=== PATIENT | female | born 1935 | race Caucasian/White ===

== ENCOUNTER → 2023-03-07 13:54 | Outpatient (REF) | payer MEDICARE, OTHER, SELFPAY | LOC: WOUND 13:54 | PROVIDERS: ATTENDING PHYSICIAN Surgery; REFERRING PHYSICIAN Nurse Practitioner | DX: L97.822 Non-pressure chronic ulcer of other part of left lower leg with fat layer exposed (principal); S81.802S Unspecified open wound, left lower leg, sequela; Z79.52 Long term (current) use of systemic steroids; M35.3 Polymyalgia rheumatica; I10 Essential (primary) hypertension; R79.82 Elevated C-reactive protein (CRP); X58.XXXS Exposure to other specified factors, sequela | CPT/HCPCS: 11042; 11045 ==

== ENCOUNTER → 2023-03-14 14:49 | Outpatient (REF) | payer MEDICARE, OTHER, SELFPAY | LOC: WOUND 14:49 | PROVIDERS: ATTENDING PHYSICIAN Surgery; REFERRING PHYSICIAN Nurse Practitioner | DX: L97.822 Non-pressure chronic ulcer of other part of left lower leg with fat layer exposed (principal); S81.802S Unspecified open wound, left lower leg, sequela; X58.XXXS Exposure to other specified factors, sequela | CPT/HCPCS: 11042; 11045 ==

== ENCOUNTER → 2023-03-21 10:54 | Outpatient (REF) | payer MEDICARE, OTHER, SELFPAY | LOC: WOUND 10:54 | PROVIDERS: ATTENDING PHYSICIAN Surgery; REFERRING PHYSICIAN Nurse Practitioner | DX: L97.822 Non-pressure chronic ulcer of other part of left lower leg with fat layer exposed (principal); S81.811A Laceration without foreign body, right lower leg, initial encounter; Z79.52 Long term (current) use of systemic steroids; M35.3 Polymyalgia rheumatica; I10 Essential (primary) hypertension; R79.82 Elevated C-reactive protein (CRP); X58.XXXA Exposure to other specified factors, initial encounter | CPT/HCPCS: 11042; 11045; 99213 ==

== ENCOUNTER → 2023-04-04 14:17 | Outpatient (REF) | payer MEDICARE, OTHER, SELFPAY | LOC: WOUND 14:17 | PROVIDERS: ATTENDING PHYSICIAN Surgery; FAMILY PHYSICIAN Nurse Practitioner | DX: L97.822 Non-pressure chronic ulcer of other part of left lower leg with fat layer exposed (principal); S81.802A Unspecified open wound, left lower leg, initial encounter; S81.811A Laceration without foreign body, right lower leg, initial encounter; Z79.52 Long term (current) use of systemic steroids; M35.3 Polymyalgia rheumatica; I10 Essential (primary) hypertension; R79.82 Elevated C-reactive protein (CRP); X58.XXXA Exposure to other specified factors, initial encounter | CPT/HCPCS: 11042; 11045 ==

== ENCOUNTER → 2023-04-11 13:54 | Outpatient (REF) | payer MEDICARE, OTHER, SELFPAY | LOC: WOUND 13:54 | PROVIDERS: ATTENDING PHYSICIAN Surgery; FAMILY PHYSICIAN Nurse Practitioner | DX: S81.802A Unspecified open wound, left lower leg, initial encounter (principal); L97.822 Non-pressure chronic ulcer of other part of left lower leg with fat layer exposed; S81.811A Laceration without foreign body, right lower leg, initial encounter; Z79.52 Long term (current) use of systemic steroids; M35.3 Polymyalgia rheumatica; I10 Essential (primary) hypertension; R79.82 Elevated C-reactive protein (CRP); X58.XXXA Exposure to other specified factors, initial encounter | CPT/HCPCS: 11042; 11045 ==

== ENCOUNTER → 2023-04-18 14:23 | Outpatient (REF) | payer MEDICARE, OTHER, SELFPAY | LOC: WOUND 14:23 | PROVIDERS: ATTENDING PHYSICIAN Surgery; FAMILY PHYSICIAN Nurse Practitioner | DX: L97.822 Non-pressure chronic ulcer of other part of left lower leg with fat layer exposed (principal); S81.811A Laceration without foreign body, right lower leg, initial encounter; S81.802S Unspecified open wound, left lower leg, sequela; Z79.52 Long term (current) use of systemic steroids; M35.3 Polymyalgia rheumatica; I10 Essential (primary) hypertension; R79.82 Elevated C-reactive protein (CRP); V48.4XXA Person boarding or alighting a car injured in noncollision transport accident, initial encounter | CPT/HCPCS: 11042; 11045 ==

== ENCOUNTER → 2023-05-04 13:22 | Outpatient (REF) | payer MEDICARE, OTHER, SELFPAY | LOC: WOUND 13:22 | PROVIDERS: ATTENDING PHYSICIAN Surgery; FAMILY PHYSICIAN Nurse Practitioner | DX: L97.822 Non-pressure chronic ulcer of other part of left lower leg with fat layer exposed (principal); S81.802A Unspecified open wound, left lower leg, initial encounter; S81.811A Laceration without foreign body, right lower leg, initial encounter; M35.3 Polymyalgia rheumatica; I10 Essential (primary) hypertension; R79.82 Elevated C-reactive protein (CRP); Z79.52 Long term (current) use of systemic steroids; X58.XXXA Exposure to other specified factors, initial encounter | CPT/HCPCS: 11042 ==

== ENCOUNTER → 2023-05-11 13:55 | Outpatient (REF) | payer MEDICARE, OTHER, SELFPAY | LOC: WOUND 13:55 | PROVIDERS: ATTENDING PHYSICIAN Surgery; FAMILY PHYSICIAN Nurse Practitioner | DX: S81.802A Unspecified open wound, left lower leg, initial encounter (principal); L97.822 Non-pressure chronic ulcer of other part of left lower leg with fat layer exposed; S81.811A Laceration without foreign body, right lower leg, initial encounter; M35.3 Polymyalgia rheumatica; I10 Essential (primary) hypertension; R79.82 Elevated C-reactive protein (CRP); Z79.52 Long term (current) use of systemic steroids; V48.4XXA Person boarding or alighting a car injured in noncollision transport accident, initial encounter | CPT/HCPCS: 11042 ==

== ENCOUNTER → 2023-05-16 14:43 | Outpatient (REF) | payer MEDICARE, OTHER, SELFPAY | LOC: HWRAD 14:43 | PROVIDERS: ATTENDING PHYSICIAN Physician Assistant Medical; FAMILY PHYSICIAN Nurse Practitioner | DX: R05.1 Acute cough (principal) | CPT/HCPCS: 71046 ==

== ENCOUNTER 2023-05-18 13:57 | Inpatient (IN) | payer MEDICARE, OTHER, SELFPAY ==
[2023-05-18] VITALS (7 sets, daily range): BP systolic 110–159; BP diastolic 69–88; BMI 24.3; BMI 24.0
[2023-05-18 10:42] LABS: % Basophils 0.3 % (0-2); % Eosinophils 3.1 % (0-6); % Immature Granulocytes 0.5 % (0-0.5); % Monocytes 3.2 % (1.7-9.3); % Neutrophils 89.9 % (42.2-75.2); Absolute Eosinophils 0.4 10^3/uL (0-0.7); Absolute Immature Granulocytes 0.1 10^3/uL (0-0.05); Absolute Lymphocytes 0.3 10^3/uL (1.2-3.4); Absolute Monocytes 0.4 10^3/uL (0.1-0.6); Absolute Neutrophils 10.1 10^3/uL (1.4-6.5); Hematocrit 35.8 % (37.0-47.0); Hemoglobin 11.8 g/dL (12.0-16.0); Mean Platelet Volume 8.7 fL (7.4-10.4); Nucleated Red Blood Cells % 0 %; Platelet Count 402 10^3/uL (130-400); Red Blood Cell Count 4.21 10^6/uL (4.20-5.40); Red Cell Dist. Width 13.7 % (11.5-14.5); White Blood Cell Count 11.2 10^3/uL (4.8-10.8)
[2023-05-18 10:54] LABS: ALT (SGPT) 16 U/L (0-35); AST (SGOT) 25 U/L (14-36); Albumin 3.3 g/dl (3.5-5.0); Alkaline Phosphatase 74 U/L (38-126); Blood Urea Nitrogen 9 mg/dl (7-17); Calcium 8.6 mg/dl (8.4-10.2); Carbon Dioxide 26 mmol/L (22-30); Chloride 90 mmol/L (98-107); Glucose 116 mg/dl (70-99); Potassium 3.6 mmol/L (3.5-5.1); Sodium 124 mmol/L (135-145); Total Bilirubin 0.4 mg/dl (0.2-1.3); Total Protein 5.9 g/dl (6.3-8.2); eGFR > 60.00
--- NOTE | 2023-05-18 12:50 | ED.GENMED ---
History of Present Illness
General
Chief Complaint: Abnormal Lab Value
Source: patient and family
Exam Limitations: none
Time Seen by Provider: 05/18/23 11:40
Nursing documentation reviewed up to this point in time: agreed with
Travel History
Have you had any contact with someone who has COVID-19?: No
Do you have any symptoms of coronavirus? Fever > 100 degrees, chills, cough, shortness of breath, sore throat, loss of taste or smell, muscle aches, or headache?: No
History of Present Illness
History of Present Illness:
88-year-old female past medical history of hypertension hyperlipidemia, hypothyroidism presenting to the emergency department today with concerns of low sodium she had performed as an outpatient. She claims that she had an upper respiratory
syndrome a few weeks ago which is resolved but she has had ongoing generalized weakness fatigue lightheadedness. Went to the primary care doctor as an outpatient sodium 123. She says that she has been eating less and drinking more fluids. Denies
chest pain shortness of breath
Past History
Past History
ED Past Medical History: HTN and Hypothyroidism
ED Past Surgical History: None
Social History
Tobacco: Non-smoker
Alcohol: None
Drug: None
Review of Systems
Review of Systems
Allergies reviewed?: Yes
All Other Systems: ROS reviewed and negative except as documented in HPI and ROS
Phy Exam
Physical Exam
Physical Exam:
GENERAL: Alert , in no apparent distress
EYE: pupils equal and reactive
NECK: Supple, no significant adenopathy.
ENT: o/p clr, mmm.
CARDIAC: Regular rate and rhythm .
LUNGS: Clear breath sounds bilaterally, no acute respiratory distress, no wheezes/rales/rhonchi
ABDOMEN: Soft, without focal tenderness, no r/g, no cvat
NEUROLOGICAL: Alert and oriented, no focal neuro deficits
SKIN: Warm and dry, skin intact.
MUSCULOSKELETAL: No edema, well perfused.
PSYCH: Normal and appropriate interaction.
Course
Orders/Labs/Results
Orders:
Orders
05/18/23 10:17
Electrocardiogram (*1) Urgent
Reason for Study: Other
Other Reason for Exam: low sodium
05/18/23 10:18
EKG- Treatment ONCE
Urinalysis Reflex To Culture Urgent
Date Specimen was Collected: 05/18/23
Time Specimen was Collected: 10:18
05/18/23 10:23
Complete Blood Count/With Diff Urgent
Comprehensive Metabolic Panel Urgent
05/18/23 12:02
Chest [CR Chest - 2 Views ] Urgent
Comment:
Reason For Exam: cough
Abnormal Lab Results
05/18/23
10:23
WBC 11.2 H 10^3/uL
(4.8-10.8)
Hgb 11.8 L g/dL
(12.0-16.0)
Hct 35.8 L %
(37.0-47.0)
Plt Count 402 H 10^3/uL
(130-400)
Abs Immat Gran (auto) 0.1 H 10^3/uL
(0-0.05)
Absolute Neuts (auto) 10.1 H 10^3/uL
(1.4-6.5)
Absolute Lymphs (auto) 0.3 L 10^3/uL
(1.2-3.4)
Neutrophils % 89.9 H %
(42.2-75.2)
Lymphocytes % 3.0 L %
(20.5-51.1)
Sodium 124 L mmol/L
(135-145)
Chloride 90 L mmol/L
(98-107)
Glucose 116 H mg/dl
(70-99)
Total Protein 5.9 L g/dl
(6.3-8.2)
Albumin 3.3 L g/dl
(3.5-5.0)
05/18/23 10:23
05/18/23 10:23
Vital Signs
Initial and Last Documented VS:
Initial Vital Signs
Temp Pulse Resp BP Pulse Ox
98.7 F 87 18 110/69 98
05/18/23 10:14 05/18/23 10:14 05/18/23 10:14 05/18/23 10:14 05/18/23 10:14
Last Documented Vital Signs
Temp Pulse Resp BP Pulse Ox
98.7 F 83 23 157/78 96
05/18/23 10:14 05/18/23 12:00 05/18/23 12:00 05/18/23 12:00 05/18/23 12:00
MDM/Problems Addressed
MDM/Problems Addressed:
88-year-old female presenting to the emergency department today with concerns of low sodium. Here vital signs are normal patient no obvious distress does have generalized weakness fatigue. Plan to admit for further treatment and monitoring.
*Critical Care Note
Total Time (30-74mins, 75-104mins- exclusive of procedures): Not Applicable
ED Attending Note
-
Portions of this chart may have been created with voice recognition software.� Occasional wrong word or��sound alike� substitutions may have occurred due to the inherent limitations of voice recognition software.
Discharge Plan
Departure
Patient Disposition: Admit
Date of Disposition: 05/18/23
Time of Disposition: 12:51
Admit to: Med/Surg
Admit to doctor: Adelita
Presentation/result/management discussed w/ accepting MD/DO: Hospitalist
Patient with high blood pressure during this ER visit?: No
Condition: Good
Covid-19: Not Applicable
Discharge Problem:
Hyponatremia
Prescriptions:
No Action
latanoprost 0.005 % Drops
1 drp BOTH EYES HS
atorvastatin 10 mg Tablet
10 mg PO QPM
amlodipine 5 mg Tablet
5 mg PO QPM
acetaminophen [Tylenol Extra Strength] 500 mg Tablet
1,000 mg PO Q6H PRN (Reason: mild pain)
levothyroxine 100 mcg Tablet
100 mcg PO DAILY@0700
dorzolamide-timolol 22.3-6.8 mg/mL Drops
1 drp BOTH EYES BID
lisinopril 40 mg Tablet
40 mg PO DAILY
Knee Salt
1 applic topical NOON
Patient Comments:
05/18/2023, for wound care.
Mucinex DM
1 tab PO DAILYPRN PRN (Reason: congestion)
Prebiotic + Probiotic
2 gummy PO DAILY
Referrals:
Ana María Hernandez CRNP [Family Provider] -
Interventions
Interventions:
*Risk Screen - Suicide Last Done: 05/18/23 10:16
*General Assessment Last Done: 05/18/23 10:16
*Neglect/Abuse Screening Last Done: 05/18/23 10:16
Discharge Date and Time
Print Language: BELARUSIAN
[2023-05-18 13:02] LABS: Urine Albumin Negative (Neg - Trace); Urine Bilirubin Negative (Negative); Urine Character Clear (Clear); Urine Color Yellow; Urine Glucose Negative (Negative); Urine Ketone Negative (Negative); Urine Leukocyte 2+ (Negative); Urine Nitrite Positive (Negative); Urine Occult Blood 1+ (Negative); Urine Urobilinogen Negative (Neg - 1+); Urine pH 6.5 (5.0-9.0)
[2023-05-18 13:19] LABS: Urine Bacteria Moderate (Negative); Urine Red Blood Cell 0-2 /HPF (0-2); Urine White Cell 26-30 /HPF (0-5)
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
[2023-05-18 14:37] LABS: Osmolality Urine 128 mOsm/kg (300-900)
[2023-05-18 14:39] LABS: Urine Sodium < 5 mmol/L (30-90)
[2023-05-18 14:58] LABS: Osmolality Serum 262 mOsm/kg (275-300)
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
[2023-05-18 15:37] LABS: TSH Reflex To Free T4 1.55 uIU/ml (0.47-4.68)
[2023-05-18] MEDS: ZITHROMAX 500 MG PO (16:13)
[2023-05-18] MEDS: STERILE WATER FOR INJECTION 10 ML IV (16:13)
[2023-05-18] MEDS: ROCEPHIN 1000 MG IV (16:13)
[2023-05-18] MEDS: NORVASC 5 MG PO (17:21)
[2023-05-18] MEDS: LIPITOR 10 MG PO (17:21)
[2023-05-18] MEDS: LOVENOX SC (17:28)
--- NOTE | 2023-05-18 17:39 | PTCARENOTE ---
Received patient from ED via stretcher. AAOx3, ambulated to bed with minimal assistance. Assessed and oriented to room. Call mcelroy in close reach.
[2023-05-18] MEDS: FLORASTOR 250 MG PO (20:22)
[2023-05-18] MEDS: COSOPT EYE DROPS 1 DROP BOTH EYES (20:22)
[2023-05-18] MEDS: XALATAN OPHTHALMIC SOLUTION 1 DROP BOTH EYES (21:58)
[2023-05-19 06:00] VITALS: BMI 23.6
[2023-05-19] MEDS: SYNTHROID 100 MCG PO (06:10)
[2023-05-19] MEDS: FLORASTOR 250 MG PO ×2 (08:28→19:57)
[2023-05-19] MEDS: COSOPT EYE DROPS 1 DROP BOTH EYES ×2 (08:28→20:00)
[2023-05-19] MEDS: ZESTRIL 40 MG PO (08:31)
[2023-05-19 08:58] VITALS: BP 150/79
[2023-05-19 09:46] VITALS: BP 145/82; PULSE 88; O2SAT 96
--- NOTE | 2023-05-19 10:11 | PTOTSP ---
Pt presents to OT with grossly intact cognition and vision. Currently at mod I/I level with basic self care, transfers and functional mobility in room and bathroom without AD. No further skilled OT indicated at this time.
[2023-05-19 11:18] LABS: Blood Urea Nitrogen 7 mg/dl (7-17); Calcium 8.9 mg/dl (8.4-10.2); Carbon Dioxide 31 mmol/L (22-30); Chloride 88 mmol/L (98-107); Estimated Creatinine Clearance 55 ml/min; Glucose 98 mg/dl (70-99); Magnesium 1.8 mg/dl (1.6-2.3); Sodium 127 mmol/L (135-145); eGFR > 60.00
[2023-05-19 11:47] LABS: Cortisol, Random 23.8 ug/dl
[2023-05-19 11:49] LABS: Potassium 4.2 mmol/L (3.5-5.1)
--- NOTE | 2023-05-19 12:10 | WOUNDNOTE ---
[facility] RN NOTE: Reviewed chart and wound care center notes and met with patient. Patient is awake and alert and good historian. Left leg wound with granular pink tissue, but fistula appearing wound noted in center of wound. Wound probes approx 10 cm.
Periwound is intact and edematous. Wound draining purulent drainage. Patient denies pain during packing of wound and has been managing her own wound care at home. Will recommend cleaning wound with Dakins and resuming compression with MICHELA (patient
states she wears compression stockings daily at home). She is ambulatory, [id number]. Will confirm orders with hospitalist and update RNKaylin. Per patient, next appointment at [facility] on 05/24.
--- NOTE | 2023-05-19 13:37 | W.PN.ID1 ---
Date of Service
Date of Service: May 19, 2023
Today's Communication
await MRI read
- continue ceftriaxone, add metronidazole - further adjustements pending ID/sensi
Assessment / Plan
Suspected Acute/Subacute Osteomyelitis
Suspected myositis/abscess
- wound with much granulation tissue, however with a central fistula that probes near bone, also with deep tunninging posterior/medial 10 cm - very deep
- foul odor and copious purulent drainage post probing
- wound care to continue to follow inpatient
- wound culture obtained - S aurues and a gram negative, anaerobic pending
- agree with Xray healed fracture of tibia, gas in the tissues, await MRI read
- continue ceftriaxone, add metronidazole - further adjustements pending ID/sensi
- follow clinically
Chief Complaint
-: Other (probable osteomyelitis, suspected myositis/abscess)
Subjective / Review of Systems
afebrile
bp stable
na 127 today
blood cultures pending
wound culture S aurues and GNR
Vital Signs / Physical Exam
Vital Signs
Vital Signs
Temp Pulse Resp BP Pulse Ox
98.2 F 80 16 150/79 95
05/19/23 08:58 05/19/23 08:58 05/19/23 08:58 05/19/23 08:58 05/19/23 08:58
Physical Exam
Constitutional: No Acute Distress
Cardiovascular: Regular Rate and S1/S2; Negative Murmur or Rub
Pulmonary: Clear and Symmetric; Negative Wheezes or Rales
Gastrointestinal: Soft, Non Tender, Non Distended and Normal Bowel Sounds
Skin: Warm and Dry; Negative Rash or Jaundice
Wound: Other (ongoing moderate amount of purulent drainage)
Objective Data
Lab Data
Lab Results
05/19/23 09:49
Estimated Creat Clear 55 ml/min 05/19/23 09:49
Total Bilirubin 0.4 mg/dl (0.2-1.3) 05/18/23 10:23
AST 25 U/L (14-36) 05/18/23 10:23
ALT 16 U/L (0-35) 05/18/23 10:23
Alkaline Phosphatase 74 U/L (38-126) 05/18/23 10:23
Most recent labs reviewed.
Micro Results:
05/18/23 15:14 Wound Culture - Preliminary
Leg - Left Staphylococcus aureus
Gram negative bacilli
Gram Stain - Preliminary
05/18/23 12:53 Urine Culture - Preliminary
Urine Gram negative bacilli
05/18/23 17:22 MRSA Screen - Pending
Nose
05/18/23 15:14 Blood Culture - Pending
Blood/Venous
05/18/23 15:14 Blood Culture - Pending
Blood/Venous
[2023-05-19] MEDS: DAKIN'S SOLUTION 0.125% 1/4 STRENGTH TOPICAL (13:53)
--- NOTE | 2023-05-19 13:53 | WOUNDNOTE ---
LEFT LE WOUND
[2023-05-19] MEDS: STERILE WATER FOR INJECTION 10 ML IV (13:55)
[2023-05-19] MEDS: ROCEPHIN 1000 MG IV (13:55)
[2023-05-19 14:03] LABS: Hematocrit 37.7 % (37.0-47.0); Hemoglobin 12.6 g/dL (12.0-16.0); Mean Corp Hgb Conc. 33.4 g/dL (33.0-37.0); Mean Corpuscular Hgb 28.4 pg (27.0-31.0); Mean Corpuscular Volume 85.1 fL (81.0-99.0); Mean Platelet Volume 9.1 fL (7.4-10.4); Platelet Count 489 10^3/uL (130-400); Red Blood Cell Count 4.43 10^6/uL (4.20-5.40); Red Cell Dist. Width 14.1 % (11.5-14.5); White Blood Cell Count 10.8 10^3/uL (4.8-10.8)
--- NOTE | 2023-05-19 14:03 | W.PN.HOSP.TC ---
Today's Communication/Plan
-
f/u MRI report
f/u blood /wound cs report
continue abx
Assessment / Plan
Assessment / Plan
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
Intermittent fever episode
Rule out bacteremia versus osteomyelitis
-Leukocytosis, patient afebrile in ER minimally tachycardic with heart rate in 90s.
-Blood culture pending
-Wound culture from left lower extremity wound growing strep/gram neg bacilli
-Left lower extremity x-ray showing some air in tissue
-MRI left leg done, report pending
-ID evaluation requested
-Currently on empiric Rocephin and Flagyl.
Hypovolemic Hyponatremia
-Acuity unknown, baseline unknown
-Sodium 124, no previous labs in system to compare
-Patient having generalized weakness/fatigue/tiredness
-Not on diuretic therapy/SSRI
-Urine Na < 5 and Uosm 128
-Poor oral intake/low solute intake causing hypovolemic hyponatremia
-Nephrology evaluation requested as well
Abnormal UA
Persistent cough
-Patient having some pyuria and bacteriuria although no symptoms
-Chest x-ray also did not show any acute pulmonary illness
Thrombocytosis
-from chronic LLE wound
Essential Hypertension
-Continue amlodipine and lisinopril
Hyperlipidemia
-Continue atorvastatin
Hypothyroidism
-Continue levothyroxine
DVT proph: Lovenox
Code Status: Full Code
Care plan discussed with ID
Anticipated Discharge: > 48 hours
Subjective/Interval History
-
Date of Service: May 19, 2023
subjectively feeling bit better
Concerned about cough
Objective Data
-
Labs:
Laboratory Results
05/19/23
09:49
WBC Pending
Hgb Pending
Hct Pending
Plt Count Pending
Sodium 127 L
Potassium 4.2
Chloride 88 L
Carbon Dioxide 31 H
BUN 7
Creatinine 0.5 L
Glucose 98
Calcium 8.9
Vital Signs:
Vital Signs
Temp Pulse Resp BP Pulse Ox
98.2 F 80 16 150/79 95
05/19/23 08:58 05/19/23 08:58 05/19/23 08:58 05/19/23 08:58 05/19/23 08:58
I&O
05/18/23 05/19/23 05/20/23
06:59 06:59 06:59
Intake Total 720 / 720
Balance 720 / 720
Review of Systems
-
Respiratory: Reports Cough; Denies Trouble Breathing
Cardiac: Reports No Symptoms
Abdomen/GI: Reports No Symptoms
Physical Exam
-
General: No Apparent Distress and Comfortable
HEENT: Negative Oxygen
Respiratory: Clear to Auscultation
Cardiac: Regular Rhythm and S1/S2; Negative Murmur or Rub
GI: Soft, Nontender, Nondistended and Normal Bowel Sounds
Musculoskeletal: No Edema and Other (Left lateral calf proximal wound with sero purulent drainage)
Neuro: Awake, Alert, Oriented, No Motor Deficits and Nonfocal/Grossly Intact
Psych: Calm
[2023-05-19 15:12] VITALS: BMI 23.6
[2023-05-19 15:17] VITALS: BP 144/78
[2023-05-19] MEDS: FLAGYL 500 MG PO (16:55)
--- NOTE | 2023-05-19 17:09 | W.PN.NEPH.PH ---
Today's Communication / Plan
-
recheck sodium if low, consider 3% saline
Assessment/Plan
-
Impression:
Euvolemic hyponatremia (124)
Left lower extremity wound with fevers
Hypertension
Dyslipidemia
Hypothyroidism
History of PMR
Plan:
Hyponatremia: slowly improving to 127
-Urine osmolality of 128 does not suggest SIADH, although presence of longstanding URI would suggest SIADH etiology
-would advise fluid restriction 1200cc/day, encourage solute intake U na low
-TSH normal, cortisol ok with recent pred taper
repeat sodium now if decreasing , consider 3% saline
bp stable on meds
Left lower extremity wound: MRI no osteo
-Antibiotics directed by infectious disease
d/w pt and nursing
-
-
Date of Service: May 19, 2023
CC / HPI / ROS
-
Chief Complaint:
hyponatremia
History of Present Illness:
sodium improving to 127, BP stable
no fever
Review of Systems:
no cp or sob
no dizziness
appetite better
Labs
-
Labs:
WBC 10.8 10^3/uL (4.8-10.8) 05/19/23 09:49
RBC 4.43 10^6/uL (4.20-5.40) 05/19/23 09:49
Hgb 12.6 g/dL (12.0-16.0) 05/19/23 09:49
Hct 37.7 % (37.0-47.0) 05/19/23 09:49
Plt Count 489 10^3/uL (130-400) H D 05/19/23 09:49
Potassium 4.2 mmol/L (3.5-5.1) 05/19/23 09:49
Chloride 88 mmol/L (98-107) L 05/19/23 09:49
Carbon Dioxide 31 mmol/L (22-30) H 05/19/23 09:49
BUN 7 mg/dl (7-17) 05/19/23 09:49
Creatinine 0.5 mg/dL (0.6-1.0) L 05/19/23 09:49
eGFR > 60.00 05/19/23 09:49
Glucose 98 mg/dl (70-99) 05/19/23 09:49
Calcium 8.9 mg/dl (8.4-10.2) 05/19/23 09:49
Albumin 3.3 g/dl (3.5-5.0) L 05/18/23 10:23
Physical Exam
-
Vital Signs:
Vital Signs
Temp Pulse Resp BP Pulse Ox
98.7 F 86 16 144/78 95
05/19/23 15:17 05/19/23 15:17 05/19/23 15:17 05/19/23 15:17 05/19/23 15:17
Cardiovascular:: Regular rate and rhythm
Respiratory:: Bilateral: CTA
Lung Excursion:: Normal
Abdomen:: Nontender and Soft
Extremity Edema:: None: Bilateral:
Ap Catheter: No
--- NOTE | 2023-05-19 17:13 | CM ---
met with patient at bedside.she lives alone in house with 2 steps to enter,her bed and bath are on first level,she amb with a rollator and is I with her adl's.her pcp is dr nickerson and she uses [facility] [address] in
[place].patient is adm with hyponatemia.she has a le wound on iv abx,,wound care consult,bc pending.seen by physical therapy.pt recommends home care.referral to [facility] for vn and home pt.Plan'home with VN.
[2023-05-19] MEDS: LOVENOX SC (17:31)
[2023-05-19] MEDS: NORVASC 5 MG PO (17:34)
[2023-05-19] MEDS: LIPITOR 10 MG PO (17:34)
[2023-05-19 17:43] LABS: Sodium 125 mmol/L (135-145)
[2023-05-19] MEDS: SODIUM CHLORIDE 3% 250 IV (19:58)
[2023-05-19 23:42] LABS: Sodium 128 mmol/L (135-145)
[2023-05-19 23:54] VITALS: BP 145/75
[2023-05-20] MEDS: XALATAN OPHTHALMIC SOLUTION 1 DROP BOTH EYES ×3 (00:05→20:56)
[2023-05-20] MEDS: DAKIN'S SOLUTION 0.125% 1/4 STRENGTH 473 ML TOPICAL ×2 (00:06→08:46)
[2023-05-20] MEDS: FLAGYL 500 MG PO ×4 (00:45→23:24)
[2023-05-20 06:00] VITALS: BMI 23.6
[2023-05-20] MEDS: SYNTHROID 100 MCG PO (06:03)
[2023-05-20 07:00] VITALS: BP 128/64
[2023-05-20 08:21] LABS: Blood Urea Nitrogen 5 mg/dl (7-17); Calcium 8.4 mg/dl (8.4-10.2); Carbon Dioxide 29 mmol/L (22-30); Chloride 95 mmol/L (98-107); Estimated Creatinine Clearance 55 ml/min; Glucose 104 mg/dl (70-99); Potassium 3.5 mmol/L (3.5-5.1); Sodium 130 mmol/L (135-145); eGFR > 60.00
[2023-05-20] MEDS: COSOPT EYE DROPS 1 DROP BOTH EYES ×2 (08:46→20:56)
[2023-05-20] MEDS: FLORASTOR 250 MG PO ×2 (08:48→21:04)
[2023-05-20] MEDS: ZESTRIL 40 MG PO (08:48)
[2023-05-20] MEDS: FLUSH (NSS) 1 FLUSH IV ×3 (08:48→14:08)
--- NOTE | 2023-05-20 11:44 | W.PN.ID1 ---
Date of Service
Date of Service: May 20, 2023
Today's Communication
Add Vancomycin to ceftriaxone/metronidazole.
Agree with Surgery consult.
Assessment / Plan
LLE myositis/abscess
- wound with much granulation tissue, however with a central fistula that probes near bone, also with deep tunneling posterior/medial 10 cm - very deep
- foul odor and copious purulent drainage post probing
- MRI: + subcutaneous abscess, no osteo
- wound care to continue to follow inpatient
- wound culture obtained - MRSA, Klebsiella oxytoca, anaerobic pending
-agree with Surgical consult
- continue ceftriaxone/metronidazole
-Add IV Vancomycin
Chief Complaint
-: Other (probable osteomyelitis, suspected myositis/abscess)
Subjective / Review of Systems
Redness extended up thigh last night.
Vital Signs / Physical Exam
Vital Signs
Vital Signs
Temp Pulse Resp BP Pulse Ox
98.5 F 85 16 128/64 96
05/20/23 07:00 05/20/23 08:48 05/20/23 07:00 05/20/23 08:48 05/20/23 08:45
Physical Exam
Constitutional: No Acute Distress
Extremities: Erythema (LLE: erythema to posterior knee)
Neurological: AO x 3
Objective Data
Lab Data
Lab Results
05/19/23 09:49
05/20/23 07:39
Estimated Creat Clear 55 ml/min 05/20/23 07:39
Total Bilirubin 0.4 mg/dl (0.2-1.3) 05/18/23 10:23
AST 25 U/L (14-36) 05/18/23 10:23
ALT 16 U/L (0-35) 05/18/23 10:23
Alkaline Phosphatase 74 U/L (38-126) 05/18/23 10:23
Most recent labs reviewed.
Micro Results:
05/18/23 17:22 MRSA Screen - Final
Nose No Methicillin Resistant Staphylococcus aureus isolated.
05/18/23 15:14 Wound Culture - Final
Leg - Left Staph aureus MRSA
Klebsiella oxytoca
Gram Stain - Final
05/18/23 12:53 Urine Culture - Preliminary
Urine Gram negative bacilli
05/18/23 15:14 Blood Culture - Preliminary
Blood/Venous No Growth in 24 hours- Final report to follow
05/18/23 15:14 Blood Culture - Preliminary
Blood/Venous No Growth in 24 hours- Final report to follow
05/19/23 14:18 Anaerobic Culture - Pending
Leg - Left
05/19/23 MRI LLE: Elongated subcutaneous collection along the anteromedial lower leg soft tissues most in keeping with abscess with open draining component/wound. No evidence for underlying osteomyelitis.
Care Review
Plan reviewed with: Physician (Dr. Suma Chaney)
--- NOTE | 2023-05-20 11:58 | PHA.VAN.IN ---
Assessment
- Assessment
Renal Function: Unknown baseline
AUC Dosing Plan
- Dosing Variables
Dosing Weight (kg): 60
Dosing CrCl (ml/min): 55
Vd coefficient (L/kg): 0.7
- Empiric Dosing
Initial / Loading Dose: 1000 mg x 1 now
Maintenance Regimen: 1000 mg q24h to start 0600 05/20
Estimated AUC (mcg*h/mL): 488
Estimated Peak (mcg*h/mL): 34.1
Estimated Trough (mcg/ml): 10.8
Estimated Half Life (H): 13.8
- Monitoring
No levels ordered at this time: consider levels at steady state
Pharmacokinetics Vancomycin I
- -
Patient Age: 88
Patient Sex: Female
Vancomycin Day #: 1
Indication: [facility]
Requesting Provider: Wiliam
Height / Weight:
Height 5 ft 3 in
Actual Weight 60.441 kg
Pertinent Past Medical History: chronic left lower extremity wound
- Vital Signs / Lab Results
Temp Pulse Resp BP Pulse Ox
98.5 F 85 16 128/64 96
05/20/23 07:00 05/20/23 08:48 05/20/23 07:00 05/20/23 08:48 05/20/23 08:45
Lab Results - Hematology
05/18/23 05/19/23
10:23 09:49
WBC 11.2 H 10.8
Lab Results - Chemistry
05/18/23 05/19/23 05/20/23
10:23 09:49 07:39
BUN 9 7 5 L
Creatinine 0.6 0.5 L 0.4 L
Estimated Creat Clear 55 55
Albumin 3.3 L
Lab Results - Urine
05/18/23
12:53
Urine Nitrite (Reflex) Positive A
Leukocyte Esterase Rfl 2+ A
Urine WBC (Reflex) 26-30 A
Ur Squamous Epith Cells 3-5
Urine Bacteria (Reflex) Moderate A
Microbiology Results
05/18/23 17:22 MRSA Screen - Final
Nose No Methicillin Resistant Staphylococcus aureus isolated.
05/18/23 15:14 Wound Culture - Final
Leg - Left Staph aureus MRSA
Klebsiella oxytoca
Gram Stain - Final
05/18/23 12:53 Urine Culture - Preliminary
Urine Gram negative bacilli
05/18/23 15:14 Blood Culture - Preliminary
Blood/Venous No Growth in 24 hours- Final report to follow
05/18/23 15:14 Blood Culture - Preliminary
Blood/Venous No Growth in 24 hours- Final report to follow
--- NOTE | 2023-05-20 12:26 | W.PN.HOSP.TC ---
Today's Communication/Plan
-
General surgery consulted
Antibiotics were adjusted
Continue other care
Assessment / Plan
Assessment / Plan
Left leg abscess from MRSA/Klebsiella
Chronic left leg wound
Intermittent fever episode
-Leukocytosis, patient afebrile in ER minimally tachycardic with heart rate in 90s.
-Blood culture neg so far.
-Wound culture from left lower extremity wound growing strep/gram neg bacilli
-Left lower extremity x-ray showing some air in tissue
-MRI left leg showing fluid collection in soft tissue and likely abscess, no osteomyelitis.
-ID following and help appreciated. General surgery consulted as well.
-Antibiotic adjusted and currently on vancomycin/Rocephin/Flagyl
Hypovolemic Hyponatremia
-Acuity unknown, baseline unknown
-Sodium 124, no previous labs in system to compare
-Patient having generalized weakness/fatigue/tiredness
-Not on diuretic therapy/SSRI
-Urine Na < 5 and Uosm 128
-Poor oral intake/low solute intake causing hypovolemic hyponatremia
-Nephrology evaluation requested as well
Abnormal UA
Persistent cough
-Patient having some pyuria and bacteriuria although no symptoms
-Chest x-ray also did not show any acute pulmonary illness
Thrombocytosis
-from chronic LLE wound
Essential Hypertension
-Continue amlodipine and lisinopril
Hyperlipidemia
-Continue atorvastatin
Hypothyroidism
-Continue levothyroxine
DVT proph: Lovenox
Code Status: Full Code
Care plan discussed with ID
Anticipated Discharge: > 48 hours
Subjective/Interval History
-
Date of Service: May 20, 2023
No fever overnight
Subjectively feeling better
No other new complaints
Objective Data
-
Labs:
Laboratory Results
05/20/23
07:39
Sodium 130 L
Potassium 3.5
Chloride 95 L
Carbon Dioxide 29
BUN 5 L
Creatinine 0.4 L
Glucose 104 H
Calcium 8.4
Vital Signs:
Vital Signs
Temp Pulse Resp BP Pulse Ox
98.5 F 85 16 128/64 96
05/20/23 07:00 05/20/23 08:48 05/20/23 07:00 05/20/23 08:48 05/20/23 08:45
I&O
05/19/23 05/20/23 05/21/23
06:59 06:59 06:59
Intake Total 720 / 720 1210 / 1210
Balance 720 / 720 1210 / 1210
Review of Systems
-
Respiratory: Reports Cough
Cardiac: Reports No Symptoms
Abdomen/GI: Reports No Symptoms
Physical Exam
-
General: No Apparent Distress and Comfortable
HEENT: Negative Oxygen
Respiratory: Clear to Auscultation
Cardiac: Regular Rhythm and S1/S2; Negative Murmur or Rub
GI: Soft, Nontender and Nondistended
Musculoskeletal: No Edema and Other (Left lateral calf proximal wound with sero purulent drainage)
Neuro: Awake, Alert, Oriented, No Motor Deficits and Nonfocal/Grossly Intact
Psych: Calm
[2023-05-20] MEDS: VANCOCIN 200 IV (12:58)
[2023-05-20] MEDS: ROCEPHIN 1000 MG IV (14:07)
[2023-05-20] MEDS: STERILE WATER FOR INJECTION 10 ML IV (14:08)
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
--- NOTE | 2023-05-20 14:52 | PTCARENOTE ---
Pt transferred to rm [id number] via wheelchair with all belongings; condition stable at time of transfer. Report given to Ximena DEY.
[2023-05-20 16:15] VITALS: BP 136/74
[2023-05-20] MEDS: LOVENOX SC (17:17)
[2023-05-20] MEDS: NORVASC 5 MG PO (17:17)
[2023-05-20] MEDS: LIPITOR 10 MG PO (17:17)
--- NOTE | 2023-05-20 17:27 | W.PN.NEPH.PH ---
Today's Communication / Plan
-
labs in am
Assessment/Plan
-
Impression:
Euvolemic hyponatremia (124)
Left lower extremity wound with fevers
Hypertension
Dyslipidemia
Hypothyroidism
History of PMR
Plan:
Hyponatremia: slowly improving to 130 s/p 3%
-Urine osmolality of 128 does not suggest SIADH, although presence of longstanding URI would suggest SIADH etiology
-cont fluid restriction 1200cc/day, encourage solute intake U na low
-TSH normal, cortisol ok with recent pred taper
bp stable on meds
Left lower extremity wound: MRI no osteo
-Antibiotics directed by infectious disease
d/w pt
-
-
Date of Service: May 20, 2023
CC / HPI / ROS
-
Chief Complaint:
hyponatremia
History of Present Illness:
sodium improving to 130 s/p 3% saline, BP stable
no fever
Review of Systems:
no cp or sob
no dizziness
appetite better
Labs
-
Labs:
WBC 10.8 10^3/uL (4.8-10.8) 05/19/23 09:49
RBC 4.43 10^6/uL (4.20-5.40) 05/19/23 09:49
Hgb 12.6 g/dL (12.0-16.0) 05/19/23 09:49
Hct 37.7 % (37.0-47.0) 05/19/23 09:49
Plt Count 489 10^3/uL (130-400) H D 05/19/23 09:49
Sodium 130 mmol/L (135-145) L 05/20/23 07:39
Potassium 3.5 mmol/L (3.5-5.1) 05/20/23 07:39
Chloride 95 mmol/L (98-107) L 05/20/23 07:39
Carbon Dioxide 29 mmol/L (22-30) 05/20/23 07:39
BUN 5 mg/dl (7-17) L 05/20/23 07:39
Creatinine 0.4 mg/dL (0.6-1.0) L 05/20/23 07:39
eGFR > 60.00 05/20/23 07:39
Glucose 104 mg/dl (70-99) H 05/20/23 07:39
Calcium 8.4 mg/dl (8.4-10.2) 05/20/23 07:39
Albumin 3.3 g/dl (3.5-5.0) L 05/18/23 10:23
Physical Exam
-
Vital Signs:
Vital Signs
Temp Pulse Resp BP Pulse Ox
98.4 F 90 18 136/74 95
05/20/23 16:15 05/20/23 16:15 05/20/23 16:15 05/20/23 16:15 05/20/23 16:15
Cardiovascular:: Regular rate and rhythm
Respiratory:: Bilateral: CTA
Lung Excursion:: Normal
Abdomen:: Nontender and Soft
Extremity Edema:: None: Bilateral:
Pa Catheter: No
[2023-05-20] MEDS: DAKIN'S SOLUTION 0.125% 1/4 STRENGTH TOPICAL (20:56)
[2023-05-20 23:32] VITALS: BP 152/86
[2023-05-21 06:00] VITALS: BMI 23.4
[2023-05-21 06:27] LABS: Hemoglobin 11.7 g/dL (12.0-16.0); Mean Corp Hgb Conc. 32.5 g/dL (33.0-37.0); Mean Corpuscular Volume 86.1 fL (81.0-99.0); Mean Platelet Volume 8.3 fL (7.4-10.4); Platelet Count 416 10^3/uL (130-400); Red Blood Cell Count 4.18 10^6/uL (4.20-5.40); Red Cell Dist. Width 13.9 % (11.5-14.5); White Blood Cell Count 8.4 10^3/uL (4.8-10.8)
[2023-05-21] MEDS: SYNTHROID 100 MCG PO (06:39)
[2023-05-21] MEDS: VANCOCIN 200 IV (06:39)
[2023-05-21 06:55] LABS: Blood Urea Nitrogen 5 mg/dl (7-17); Calcium 8.8 mg/dl (8.4-10.2); Carbon Dioxide 29 mmol/L (22-30); Chloride 95 mmol/L (98-107); Estimated Creatinine Clearance 55 ml/min; Glucose 106 mg/dl (70-99); Potassium 3.5 mmol/L (3.5-5.1); Sodium 130 mmol/L (135-145); eGFR > 60.00
[2023-05-21 07:48] VITALS: BP 153/89
[2023-05-21] MEDS: COSOPT EYE DROPS 1 DROP BOTH EYES ×2 (09:14→20:41)
[2023-05-21] MEDS: DAKIN'S SOLUTION 0.125% 1/4 STRENGTH 473 ML TOPICAL ×2 (09:15→20:44)
[2023-05-21] MEDS: ZESTRIL 40 MG PO (09:15)
[2023-05-21] MEDS: FLORASTOR 250 MG PO ×2 (09:15→20:41)
[2023-05-21] MEDS: FLAGYL 500 MG PO ×2 (09:15→17:29)
--- NOTE | 2023-05-21 09:17 | W.PN.GS2 ---
Today's Communication / Plan
-
`
Assessment / Plan
-
Assessment: 88-year-old female with nonhealing left lower extremity wound after traumatic injury and secondary cellulitis/abscess which has been spontaneously drained.
Given continued improvement and localized cellulitis and adequacy of patient tolerance of local bedside care to thoroughly cleanse abscess cavity through skin opening further surgical intervention/debridement and drainage can likely be avoided if
meticulous wound care maintained.
Plan: Daily saline flushing of abscess cavity -particularly subcutaneous tracking superiorly for 10 to 12 cm and 3 to 4 cm wide to evacuate any purulence and sloughing/exudate.
After cleaning recommend deep packing to superior aspect of prior abscess cavity with 1 inch Mesalt packing strips particularly down at skin opening to maintain patency.
Dry gauze dressing cover/ABD pads for drainage
Spencer wrap to maintain dressing
Okay to ambulate as tolerated and shower as well.
Recommend visiting nursing to assist with packing changes and irrigation
Patient will follow-up with myself as an outpatient after discharge for additional wound care
From surgical standpoint okay for discharge -but will continue to follow wound if remains in hospital
Antibiotics per ID/Hospitalist
Subjective Data
-
Date of Service: May 21, 2023
Patient seen in follow-up. Reports left lower extremity subjectively doing well.
Offers no concerns other than today's evaluation to determine if further surgical intervention is warranted/necessary.
Objective Data
-
Intake and Output
05/20/23 05/21/23 05/22/23
06:59 06:59 06:59
Intake Total 1210 / 1210 1100 / 1100
Balance 1210 / 1210 1100 / 1100
Intake:
Oral fluids 960 / 960 900 / 900
IV fluids (Total) 250 / 250
IV piggybacks 200 / 200
Other:
Number of approximated MODERATE 2 2
amounts of urine
Vital Signs
Temp Pulse Resp BP Pulse Ox
97.7 F 86 16 153/89 96
05/21/23 07:48 05/21/23 07:48 05/21/23 07:48 05/21/23 07:48 05/21/23 07:48
Lab Results
05/21/23 06:07
05/21/23 06:07
Calcium 8.8 mg/dl (8.4-10.2) 05/21/23 06:07
Magnesium 1.8 mg/dl (1.6-2.3) 05/19/23 09:49
Total Bilirubin 0.4 mg/dl (0.2-1.3) 05/18/23 10:23
AST 25 U/L (14-36) 05/18/23 10:23
ALT 16 U/L (0-35) 05/18/23 10:23
Alkaline Phosphatase 74 U/L (38-126) 05/18/23 10:23
Total Protein 5.9 g/dl (6.3-8.2) L 05/18/23 10:23
Albumin 3.3 g/dl (3.5-5.0) L 05/18/23 10:23
Physical Exam
-
NAD, AAOx3
Left lower extremity: Removed dressing. There was still some purulent drainage noted on packing and expressed as well as some residual slough that was easily removed. Abscess cavity thoroughly flushed until completely clear return. No residual
necrosis noted. Cavity undermines superiorly within the subcutaneous tissues overlying the fascial level for 10 to 12 cm and 3 to 4 cm wide
--- NOTE | 2023-05-21 11:40 | PHA.VAN.FU ---
Vancomycin Assessment / Plan
- Assessment
Renal Function: Stable
WBC's are: WNL
In the past 24 hrs, patient has been: Afebrile
Concomitant Antimicrobials: ceftriaxone, PO metronidazole
- Dosing Plan
Continue: vancomycin 1000 mg q24h - first dose 05/20/23
- Monitoring Plan
Random Level: consider levels after 4th maintenance dose (05/22)
- Follow Up
Pharmacy will continue to follow.
Vancomycin Follow UP
- -
Patient Age: 88
Patient Sex: Female
Vancomycin Day #: 2
Indication: Bone And Joint
Requesting Provider: Wiliam
Height / Weight:
Height 5 ft 3 in
Actual Weight 59.988 kg
Pertinent Past Medical History: chronic left lower extremity wound
- Vital Signs / Lab Results
Temp Pulse Resp BP Pulse Ox
97.7 F 86 16 153/89 96
05/21/23 07:48 05/21/23 07:48 05/21/23 07:48 05/21/23 07:48 05/21/23 07:48
Lab Results - Hematology
05/19/23 05/21/23
09:49 06:07
WBC 10.8 8.4
Lab Results - Chemistry
05/19/23 05/20/23 05/21/23
09:49 07:39 06:07
BUN 7 5 L 5 L
Creatinine 0.5 L 0.4 L 0.5 L
Estimated Creat Clear 55 55 55
Microbiology Results
05/19/23 14:18 Anaerobic Culture - Preliminary
Leg - Left Culture pending. Anaerobic cultures are examined after 3
days incubation. Additional information to follow.
05/18/23 12:53 Urine Culture - Final
Urine Klebsiella pneumoniae-ESBL
05/18/23 15:14 Blood Culture - Preliminary
Blood/Venous No Growth in 48 hours- Final report to follow
05/18/23 15:14 Blood Culture - Preliminary
Blood/Venous No Growth in 48 hours- Final report to follow
05/18/23 17:22 MRSA Screen - Final
Nose No Methicillin Resistant Staphylococcus aureus isolated.
05/18/23 15:14 Wound Culture - Final
Leg - Left Staph aureus MRSA
Klebsiella oxytoca
Gram Stain - Final
--- NOTE | 2023-05-21 14:07 | W.PN.NEPH.PH ---
Today's Communication / Plan
-
FR, solute intake
Assessment/Plan
-
Impression:
Euvolemic hyponatremia (124)
Left lower extremity wound with fevers
Hypertension
Dyslipidemia
Hypothyroidism
History of PMR
Plan:
Hyponatremia: stable at 130 s/p 3% 4/5
-Urine osmolality of 128 does not suggest SIADH, although presence of longstanding URI would suggest SIADH etiology
-cont fluid restriction 1200cc/day, encourage solute intake U na low
-TSH normal, cortisol ok with recent pred taper
bp stable on meds
Left lower extremity wound: MRI no osteo
-Antibiotics directed by infectious disease
at d/c f/u with PCP
will s/o, call with ?s
-
-
Date of Service: May 21, 2023
CC / HPI / ROS
-
Chief Complaint:
hyponatremia
History of Present Illness:
sodium stable at 130 s/p 3% saline 4/5, BP stable
no fever
Review of Systems:
no cp or sob
no dizziness
appetite better
Labs
-
Labs:
WBC 8.4 10^3/uL (4.8-10.8) 05/21/23 06:07
RBC 4.18 10^6/uL (4.20-5.40) L 05/21/23 06:07
Hgb 11.7 g/dL (12.0-16.0) L 05/21/23 06:07
Hct 36.0 % (37.0-47.0) L 05/21/23 06:07
Plt Count 416 10^3/uL (130-400) H 05/21/23 06:07
Sodium 130 mmol/L (135-145) L 05/21/23 06:07
Potassium 3.5 mmol/L (3.5-5.1) 05/21/23 06:07
Chloride 95 mmol/L (98-107) L 05/21/23 06:07
Carbon Dioxide 29 mmol/L (22-30) 05/21/23 06:07
BUN 5 mg/dl (7-17) L 05/21/23 06:07
Creatinine 0.5 mg/dL (0.6-1.0) L 05/21/23 06:07
eGFR > 60.00 05/21/23 06:07
Glucose 106 mg/dl (70-99) H 05/21/23 06:07
Calcium 8.8 mg/dl (8.4-10.2) 05/21/23 06:07
Albumin 3.3 g/dl (3.5-5.0) L 05/18/23 10:23
Physical Exam
-
Vital Signs:
Vital Signs
Temp Pulse Resp BP Pulse Ox
97.7 F 86 16 153/89 96
05/21/23 07:48 05/21/23 07:48 05/21/23 07:48 05/21/23 07:48 05/21/23 07:48
Cardiovascular:: Regular rate and rhythm
Respiratory:: Bilateral: CTA
Lung Excursion:: Normal
Abdomen:: Nontender and Soft
Extremity Edema:: None: Bilateral:
Pa Catheter: No
--- NOTE | 2023-05-21 14:22 | W.PN.HOSP.TC ---
Today's Communication/Plan
-
abx per ID
f/u Na level
discharge planning
Assessment / Plan
Assessment / Plan
Left leg abscess from MRSA/Klebsiella
Chronic left leg wound
Intermittent fever episode
-Leukocytosis, patient afebrile in ER minimally tachycardic with heart rate in 90s.
-Blood culture neg so far.
-Wound culture from left lower extremity wound growing strep/gram neg bacilli
-Left lower extremity x-ray showing some air in tissue
-MRI left leg showing fluid collection in soft tissue and likely abscess, no osteomyelitis.
-ID following and help appreciated.
-General surgery evaluated and recommended wound packing follow-up in surgery office.
-Antibiotic adjusted and currently on vancomycin/Rocephin/Flagyl
Hypovolemic Hyponatremia
-Acuity unknown, baseline unknown
-Poor oral intake/low solute intake causing likely hypovolemic hyponatremia
-Sodium 124, no previous labs in system to compare
-Patient having generalized weakness/fatigue/tiredness
-Not on diuretic therapy/SSRI
-Urine Na < 5 and Uosm 128
-Nephrology evaluation requested as well
Persistent cough
-Chest x-ray also did not show any acute pulmonary illness
-Discussed with patient to follow-up with pulmonology in office for cough persist
Thrombocytosis
-from chronic LLE wound
Essential Hypertension
-Continue amlodipine and lisinopril
Hyperlipidemia
-Continue atorvastatin
Hypothyroidism
-Continue levothyroxine
DVT proph: Lovenox
Code Status: Full Code
Anticipated Discharge: 24 - 48 hours
Subjective/Interval History
-
Date of Service: May 21, 2023
Subjective feeling better
Afebrile overnight
Objective Data
-
Labs:
Laboratory Results
05/21/23
06:07
WBC 8.4
Hgb 11.7 L
Hct 36.0 L
Plt Count 416 H
Sodium 130 L
Potassium 3.5
Chloride 95 L
Carbon Dioxide 29
BUN 5 L
Creatinine 0.5 L
Glucose 106 H
Calcium 8.8
Vital Signs:
Vital Signs
Temp Pulse Resp BP Pulse Ox
97.7 F 86 16 153/89 96
05/21/23 07:48 05/21/23 07:48 05/21/23 07:48 05/21/23 07:48 05/21/23 07:48
I&O
05/20/23 05/21/23 05/22/23
06:59 06:59 06:59
Intake Total 1210 / 1210 1100 / 1100
Balance 1210 / 1210 1100 / 1100
Review of Systems
-
Respiratory: Reports No Symptoms
Cardiac: Reports No Symptoms
Abdomen/GI: Reports No Symptoms
Physical Exam
-
General: No Apparent Distress and Comfortable
HEENT: Negative Oxygen
Respiratory: Clear to Auscultation
Cardiac: Regular Rhythm and S1/S2; Negative Murmur or Rub
GI: Soft, Nontender and Nondistended
Musculoskeletal: No Edema and Other (Left lateral calf proximal wound with sero purulent drainage)
Neuro: Awake, Alert, Oriented, No Motor Deficits and Nonfocal/Grossly Intact
Psych: Calm
[2023-05-21] MEDS: ROCEPHIN 1000 MG IV (14:35)
[2023-05-21] MEDS: STERILE WATER FOR INJECTION 10 ML IV (14:36)
[2023-05-21 15:00] VITALS: BP 132/62
--- NOTE | 2023-05-21 16:41 | W.PN.ID1 ---
Date of Service
Date of Service: May 21, 2023
Today's Communication
- Anticipate transition to po abx's tomorrow.
Assessment / Plan
LLE myositis/abscess
- MRI: + subcutaneous abscess draining through wound, no osteo
- Per surgery no surgical intervention. To irrigate and wash abscess cavity.
- wound care to continue to follow inpatient
- wound culture obtained - MRSA, Klebsiella oxytoca, anaerobic pending
- Cellulitis improving.
- continue ceftriaxone/metronidazole/Vancomycin.
- Anticipate transition to po abx's tomorrow.
- Poor appetite probably due to metronidazole.
Chief Complaint
-: Other (probable osteomyelitis, suspected myositis/abscess)
Subjective / Review of Systems
Leg redness improving.
Appetite poor.
Vital Signs / Physical Exam
Vital Signs
Vital Signs
Temp Pulse Resp BP Pulse Ox
98.2 F 91 18 132/62 96
05/21/23 15:00 05/21/23 15:00 05/21/23 15:00 05/21/23 15:00 05/21/23 15:00
Physical Exam
Constitutional: No Acute Distress and Comfortable
Gastrointestinal: Soft, Non Tender and Non Distended
Wound: Other (LLE dressing with yellow fluid strike through. Surrounding erythema receding from marked line. )
Objective Data
Lab Data
Lab Results
05/21/23 06:07
05/21/23 06:07
Estimated Creat Clear 55 ml/min 05/21/23 06:07
Total Bilirubin 0.4 mg/dl (0.2-1.3) 05/18/23 10:23
AST 25 U/L (14-36) 05/18/23 10:23
ALT 16 U/L (0-35) 05/18/23 10:23
Alkaline Phosphatase 74 U/L (38-126) 05/18/23 10:23
Most recent labs reviewed.
Micro Results:
05/18/23 15:14 Blood Culture - Preliminary
Blood/Venous No Growth in 72 hours- Final report to follow
05/18/23 15:14 Blood Culture - Preliminary
Blood/Venous No Growth in 72 hours- Final report to follow
05/19/23 14:18 Anaerobic Culture - Preliminary
Leg - Left Culture pending. Anaerobic cultures are examined after 3
days incubation. Additional information to follow.
05/18/23 12:53 Urine Culture - Final
Urine Klebsiella pneumoniae-ESBL
05/18/23 17:22 MRSA Screen - Final
Nose No Methicillin Resistant Staphylococcus aureus isolated.
05/18/23 15:14 Wound Culture - Final
Leg - Left Staph aureus MRSA
Klebsiella oxytoca
Gram Stain - Final
05/19/23 MRI LLE: Elongated subcutaneous collection along the anteromedial lower leg soft tissues most in keeping with abscess with open draining component/wound. No evidence for underlying osteomyelitis.
Care Review
Plan reviewed with: Physician (Dr. Suma Chaney)
[2023-05-21] MEDS: LOVENOX 40 MG SC (17:28)
[2023-05-21] MEDS: NORVASC 5 MG PO (17:29)
[2023-05-21] MEDS: LIPITOR 10 MG PO (17:34)
[2023-05-21 23:30] VITALS: BP 139/80
[2023-05-22] MEDS: FLAGYL 500 MG PO ×3 (00:22→16:10)
[2023-05-22 06:00] VITALS: BMI 23.4
[2023-05-22] MEDS: VANCOCIN IV (06:09)
[2023-05-22] MEDS: SYNTHROID 100 MCG PO (06:10)
[2023-05-22 07:34] LABS: Blood Urea Nitrogen 5 mg/dl (7-17); Calcium 8.4 mg/dl (8.4-10.2); Carbon Dioxide 27 mmol/L (22-30); Chloride 94 mmol/L (98-107); Estimated Creatinine Clearance 55 ml/min; Glucose 96 mg/dl (70-99); Potassium 3.7 mmol/L (3.5-5.1); Sodium 127 mmol/L (135-145); eGFR > 60.00
[2023-05-22] MEDS: FLORASTOR 250 MG PO ×2 (07:51→21:09)
[2023-05-22] MEDS: COSOPT EYE DROPS 1 DROP BOTH EYES ×2 (07:52→21:10)
[2023-05-22] MEDS: ZESTRIL 40 MG PO (07:54)
[2023-05-22] MEDS: DAKIN'S SOLUTION 0.125% 1/4 STRENGTH 473 ML TOPICAL (07:54)
[2023-05-22] MEDS: VANCOCIN 200 IV (07:54)
[2023-05-22 08:04] VITALS: BP 135/69
[2023-05-22 09:20] VITALS: BP 135/69; PULSE 98
--- NOTE | 2023-05-22 10:39 | W.PN.GS2 ---
Today's Communication / Plan
-
Daily wound care
Assessment / Plan
-
Assessment: 88-year-old female with nonhealing left lower extremity wound after traumatic injury and secondary cellulitis/abscess which has been spontaneously drained.
Given continued improvement and localized cellulitis and adequacy of patient tolerance of local bedside care to thoroughly cleanse abscess cavity through skin opening further surgical intervention/debridement and drainage can likely be avoided if
meticulous wound care maintained.
Plan:
Wound care: Daily saline flushing of abscess cavity. After cleaning recommend deep packing to superior aspect of prior abscess cavity with 1 inch Mesalt packing strips particularly down at skin opening to maintain patency. Dry gauze dressing
cover/ABD pads for drainage. Spencer wrap to maintain dressing
Okay to ambulate as tolerated and shower as well.
Recommend wound care nursing consult while patient is admitted. Recommend visiting nursing to assist with packing changes and irrigation once discharged.
Patient will follow-up with Dr. Lauren as an outpatient after discharge for additional wound care in 2 to 3 weeks. She can continue seeing Dr. Verduzco in the wound care clinic.
From surgical standpoint okay for discharge -but will continue to follow peripherally while in the hospital. Call with any questions or concerns.
Time Spent
Total Time Spent with Patient (in minutes): 25
Subjective Data
-
Date of Service: May 22, 2023
Interval Events:
No acute events overnight. Slept well. Pain Controlled. Denies fevers, nausea or vomiting.
Objective Data
-
Intake and Output
05/21/23 05/22/23 05/23/23
06:59 06:59 06:59
Intake Total 1100 / 1100 1020 / 1020
Balance 1100 / 1100 1020 / 1020
Intake:
Oral fluids 900 / 900 1020 / 1020
IV piggybacks 200 / 200
Other:
Number of approximated MODERATE 2 2
amounts of urine
Number of approximated LARGE 1
amounts of urine
Vital Signs
Temp Pulse Resp BP Pulse Ox
98 F 98 16 135/69 98
05/22/23 08:04 05/22/23 08:04 05/22/23 08:04 05/22/23 08:04 05/22/23 08:04
Lab Results
05/21/23 06:07
05/22/23 06:09
Calcium 8.4 mg/dl (8.4-10.2) 05/22/23 06:09
Magnesium 1.8 mg/dl (1.6-2.3) 05/19/23 09:49
Total Bilirubin 0.4 mg/dl (0.2-1.3) 05/18/23 10:23
AST 25 U/L (14-36) 05/18/23 10:23
ALT 16 U/L (0-35) 05/18/23 10:23
Alkaline Phosphatase 74 U/L (38-126) 05/18/23 10:23
Total Protein 5.9 g/dl (6.3-8.2) L 05/18/23 10:23
Albumin 3.3 g/dl (3.5-5.0) L 05/18/23 10:23
Physical Exam
-
NAD, AAOx3
Left lower extremity: Dressing removed. There is a 2 cm punctate wound with surrounding erythema, removed (receded from previous marked skin lines) with minimal drainage. Cavity thoroughly flushed with some fibrinous exudate removed. No pus or
necrosis noted. Cavity remains significantly undermined 8 cm proximally, 3 to 4 cm distally and roughly 3 cm wide. The wound was repacked after flushing with a single piece of quarter inch packing strip and covered with nonadherent dressing
followed by Spencer wrap.
[2023-05-22] MEDS: LMX 4 1 APPLIC TOPICAL (10:55)
--- NOTE | 2023-05-22 13:30 | W.PN.HOSP.TC ---
Today's Communication/Plan
-
Monitor vital signs
see plan
Continue antibiotics
Monitor sodium; continue with fluid restriction
Nephrology to evaluate
Assessment / Plan
Assessment / Plan
Left leg abscess from MRSA/Klebsiella
Chronic left leg wound
Intermittent fever episode
-Leukocytosis, patient afebrile in ER minimally tachycardic with heart rate in 90s.
-Blood culture neg so far.
-Wound culture from left lower extremity wound growing strep/gram neg bacilli
-Left lower extremity x-ray showing some air in tissue
-MRI left leg showing fluid collection in soft tissue and likely abscess, no osteomyelitis.
-ID following and help appreciated.
-General surgery evaluated and recommended wound packing follow-up in surgery office.
-Antibiotic adjusted and currently on vancomycin/Rocephin/Flagyl
Hyponatremia
-Acuity unknown, baseline unknown
-Sodium now 127
-Patient having generalized weakness/fatigue/tiredness
-Not on diuretic therapy/SSRI
-Urine Na < 5 and Uosm 128
-Nephrology following; s/p 3% 4/5
Currently on fluid restrict
Persistent cough
-Chest x-ray also did not show any acute pulmonary illness
-Discussed with patient to follow-up with pulmonology in office for cough persist
Thrombocytosis
-from chronic LLE wound
Essential Hypertension
-Continue amlodipine and lisinopril
Hyperlipidemia
-Continue atorvastatin
Hypothyroidism
-Continue levothyroxine
DVT proph: Lovenox
Code Status: Full Code
General: No Apparent Distress and Comfortable
HEENT: Negative Oxygen
Respiratory: Clear to Auscultation
Cardiac: Regular Rhythm and S1/S2; Negative Murmur or Rub
GI: Soft, Nontender and Nondistended
Musculoskeletal: No Edema and Other (Left lateral calf proximal wound with sero purulent drainage)
Neuro: Awake, Alert, Oriented, No Motor Deficits and Nonfocal/Grossly Intact
Psych: Calm
Anticipated Discharge: Within 24 hours
Subjective/Interval History
-
Date of Service: May 22, 2023
denies pain
Objective Data
-
Labs:
Laboratory Results
05/22/23
06:09
Sodium 127 L
Potassium 3.7
Chloride 94 L
Carbon Dioxide 27
BUN 5 L
Creatinine 0.5 L
Glucose 96
Calcium 8.4
Vital Signs:
Vital Signs
Temp Pulse Resp BP Pulse Ox
98 F 98 16 135/69 98
05/22/23 08:04 05/22/23 08:04 05/22/23 08:04 05/22/23 08:04 05/22/23 08:04
I&O
05/21/23 05/22/23 05/23/23
06:59 06:59 06:59
Intake Total 1100 / 1100 1020 / 1020
Balance 1100 / 1100 1020 / 1020
[2023-05-22] MEDS: STERILE WATER FOR INJECTION 10 ML IV (14:02)
[2023-05-22] MEDS: ROCEPHIN 1000 MG IV (14:03)
--- NOTE | 2023-05-22 15:34 | PHA.VAN.FU ---
Vancomycin Assessment / Plan
- Assessment
Renal Function: Stable
WBC's are: WNL
In the past 24 hrs, patient has been: Afebrile
Concomitant Antimicrobials: ceftriaxone, metronidazole
- Dosing Plan
Continue: Vanc 1000mg Q24H
- Monitoring Plan
No level(s) ordered at this time: consider levels in next few days
- Follow Up
Pharmacy will continue to follow.
Vancomycin Follow UP
- -
Patient Age: 88
Patient Sex: Female
Vancomycin Day #: 3
Indication: Bone And Joint
Requesting Provider: Wiliam
Pertinent Antimicrobial Allergies:
NKDA
Height / Weight:
Height 5 ft 3 in
Actual Weight 59.959 kg
Pertinent Past Medical History: chronic left lower extremity wound
- Vital Signs / Lab Results
Temp Pulse Resp BP Pulse Ox
98 F 98 16 135/69 98
05/22/23 08:04 05/22/23 08:04 05/22/23 08:04 05/22/23 08:04 05/22/23 08:04
Lab Results - Hematology
05/21/23
06:07
WBC 8.4
Lab Results - Chemistry
05/20/23 05/21/23 05/22/23
07:39 06:07 06:09
BUN 5 L 5 L 5 L
Creatinine 0.4 L 0.5 L 0.5 L
Estimated Creat Clear 55 55 55
Microbiology Results
05/19/23 14:18 Anaerobic Culture - Preliminary
Leg - Left Culture pending. Anaerobic cultures are examined after 3
days incubation. Additional information to follow.
05/18/23 15:14 Blood Culture - Preliminary
Blood/Venous No Growth in 72 hours- Final report to follow
05/18/23 15:14 Blood Culture - Preliminary
Blood/Venous No Growth in 72 hours- Final report to follow
05/18/23 12:53 Urine Culture - Final
Urine Klebsiella pneumoniae-ESBL
--- NOTE | 2023-05-22 16:01 | CM ---
Patient seen bedside.
patient aware of telephonic nurse case manager availability for any d/c needs.
Plan: d/c home with [facility] when stable, daughter will transport.
IMM completed.
[2023-05-22 16:22] VITALS: BP 150/84
[2023-05-22] MEDS: TYLENOL 650 MG PO (16:29)
--- NOTE | 2023-05-22 17:29 | W.PN.ID1 ---
Date of Service
Date of Service: May 22, 2023
Today's Communication
- urine culture with ESBL K pneumoniae - likely cause of relapse of fevers
- continue vancomycin, start ertapenem - stop ceftriaxone/metronidazole
- may switch to levaquin oral when clinically improving
Assessment / Plan
Relapse of Fever
LLE myositis/abscess
- MRI: + subcutaneous abscess draining through wound, no osteo
- Per surgery no surgical intervention. S/p bedside irrigation and wash abscess cavity.
- wound care to continue to follow inpatient
- wound culture obtained - MRSA, Klebsiella oxytoca, anaerobic pending
- urine culture with ESBL K pneumoniae - likely cause of relapse of fevers
- continue vancomycin, start ertapenem - stop ceftriaxone/metronidazole
- may switch to levaquin oral when clinically improving
Chief Complaint
-: Other (probable osteomyelitis, suspected myositis/abscess)
Subjective / Review of Systems
developing a fever this afternoon
malaise
repeat ROS: ongoing cough but no headaches, sinus tenderness, sore throat, sputum production, nausea, vomiting, diarrhea, dysuria, urgency/frequency, new rashes, lower extremity swelling, tenderness over PIVs
'I feel bad'
Vital Signs / Physical Exam
Vital Signs
Vital Signs
Temp Pulse Resp BP Pulse Ox
100.4 F H 100 16 150/84 98
05/22/23 16:22 05/22/23 16:22 05/22/23 16:22 05/22/23 16:22 05/22/23 16:22
Physical Exam
Constitutional: No Acute Distress
Cardiovascular: Regular Rate and S1/S2; Negative Murmur or Rub
Pulmonary: Clear and Symmetric; Negative Wheezes or Rales
Gastrointestinal: Soft, Non Tender, Non Distended and Normal Bowel Sounds
Genito-Urinary: Negative Suprapubic Tenderness
Skin: Warm and Dry; Negative Rash or Jaundice
Lines: PIV
Objective Data
Lab Data
Lab Results
05/21/23 06:07
05/22/23 06:09
Estimated Creat Clear 55 ml/min 05/22/23 06:09
Total Bilirubin 0.4 mg/dl (0.2-1.3) 05/18/23 10:23
AST 25 U/L (14-36) 05/18/23 10:23
ALT 16 U/L (0-35) 05/18/23 10:23
Alkaline Phosphatase 74 U/L (38-126) 05/18/23 10:23
Most recent labs reviewed.
Micro Results:
05/22/23 17:23 Blood Culture - Pending
Blood/Venous
05/22/23 16:57 Blood Culture - Pending
Blood/Venous
05/18/23 15:14 Blood Culture - Preliminary
Blood/Venous No Growth in 4 days- Final report to follow
05/18/23 15:14 Blood Culture - Preliminary
Blood/Venous No Growth in 4 days- Final report to follow
05/19/23 14:18 Anaerobic Culture - Preliminary
Leg - Left Culture pending. Anaerobic cultures are examined after 3
days incubation. Additional information to follow.
05/18/23 12:53 Urine Culture - Final
Urine Klebsiella pneumoniae-ESBL
05/18/23 17:22 MRSA Screen - Final
Nose No Methicillin Resistant Staphylococcus aureus isolated.
05/18/23 15:14 Wound Culture - Final
Leg - Left Staph aureus MRSA
Klebsiella oxytoca
Gram Stain - Final
05/19/23 MRI LLE: Elongated subcutaneous collection along the anteromedial lower leg soft tissues most in keeping with abscess with open draining component/wound. No evidence for underlying osteomyelitis.
[2023-05-22] MEDS: LIPITOR 10 MG PO (17:52)
[2023-05-22] MEDS: NORVASC 5 MG PO (17:52)
[2023-05-22] MEDS: LOVENOX SC ×2 (17:52→18:01)
[2023-05-22] MEDS: INVANZ 60 MG IV (17:56)
[2023-05-22] MEDS: XALATAN OPHTHALMIC SOLUTION 1 DROP BOTH EYES (21:09)
[2023-05-22] MEDS: DAKIN'S SOLUTION 0.125% 1/4 STRENGTH TOPICAL (21:10)
[2023-05-22 23:12] VITALS: BP 146/71
[2023-05-23 06:00] VITALS: BMI 23.4
[2023-05-23] MEDS: SYNTHROID 100 MCG PO (06:16)
[2023-05-23] MEDS: VANCOCIN 200 IV (06:16)
[2023-05-23 07:20] VITALS: BP 125/69
[2023-05-23 09:08] LABS: Blood Urea Nitrogen 6 mg/dl (7-17); Calcium 8.4 mg/dl (8.4-10.2); Carbon Dioxide 27 mmol/L (22-30); Chloride 92 mmol/L (98-107); Estimated Creatinine Clearance 55 ml/min; Glucose 122 mg/dl (70-99); Potassium 3.7 mmol/L (3.5-5.1); Sodium 125 mmol/L (135-145); eGFR > 60.00
[2023-05-23] MEDS: DAKIN'S SOLUTION 0.125% 1/4 STRENGTH 1 ML TOPICAL (09:10)
[2023-05-23] MEDS: FLORASTOR 250 MG PO ×2 (09:10→21:00)
[2023-05-23] MEDS: COSOPT EYE DROPS 1 DROP BOTH EYES ×2 (09:10→21:00)
[2023-05-23] MEDS: ZESTRIL 40 MG PO (09:12)
--- NOTE | 2023-05-23 09:25 | PHA.VAN.FU ---
Vancomycin Assessment / Plan
- Assessment
Renal Function: Stable
WBC's are: WNL
Concomitant Antimicrobials: ertapenem
- Dosing Plan
Continue: Vanc 1000mg Q24H
- Monitoring Plan
No level(s) ordered at this time: will hold off on levels given possible transition to PO
- Follow Up
Pharmacy will continue to follow.
Vancomycin Follow UP
- -
Patient Age: 88
Patient Sex: Female
Vancomycin Day #: 4
Indication: Bone And Joint
Requesting Provider: Wiliam
Pertinent Antimicrobial Allergies:
NKDA
Height / Weight:
Height 5 ft 3 in
Actual Weight 59.988 kg
Pertinent Past Medical History: chronic left lower extremity wound
- Vital Signs / Lab Results
Temp Pulse Resp BP Pulse Ox
99.0 F 101 16 125/69 96
05/23/23 07:20 05/23/23 07:20 05/23/23 07:20 05/23/23 07:20 05/23/23 07:20
Lab Results - Hematology
05/21/23
06:07
WBC 8.4
Lab Results - Chemistry
05/21/23 05/22/23 05/23/23
06:07 06:09 07:47
BUN 5 L 5 L 6 L
Creatinine 0.5 L 0.5 L 0.4 L
Estimated Creat Clear 55 55 55
Microbiology Results
05/18/23 15:14 Blood Culture - Preliminary
Blood/Venous No Growth in 4 days- Final report to follow
05/18/23 15:14 Blood Culture - Preliminary
Blood/Venous No Growth in 4 days- Final report to follow
05/19/23 14:18 Anaerobic Culture - Preliminary
Leg - Left Culture pending. Anaerobic cultures are examined after 3
days incubation. Additional information to follow.
05/18/23 12:53 Urine Culture - Final
Urine Klebsiella pneumoniae-ESBL
--- NOTE | 2023-05-23 10:55 | W.PN.ID1 ---
Date of Service
Date of Service: May 23, 2023
Today's Communication
- continue vanc/ertapenem for today, likely transition to levaquin tomorrow
Assessment / Plan
Relapse of Fever - improved
LLE myositis/abscess
- MRI: + subcutaneous abscess draining through wound, no osteo
- Per surgery no surgical intervention. S/p bedside irrigation and wash abscess cavity.
- wound culture - MRSA, Klebsiella oxytoca, anaerobic pending
- urine culture with ESBL K pneumoniae - likely caused broderline relapse of fevers last night
- continue vanc/ertapenem for today, likely transition to levaquin tomorrow
Chief Complaint
-: Other (probable osteomyelitis, suspected myositis/abscess)
Subjective / Review of Systems
no mack fevers overnight
bp stable
qtc acceptable
progression of hyponatremia today
cr stable
does report subjective improvement overnight but not yet at her normal
Vital Signs / Physical Exam
Vital Signs
Vital Signs
Temp Pulse Resp BP Pulse Ox
99.0 F 101 16 125/69 96
05/23/23 07:20 05/23/23 07:20 05/23/23 07:20 05/23/23 07:20 05/23/23 07:20
Physical Exam
Constitutional: No Acute Distress
Cardiovascular: Regular Rate and S1/S2; Negative Murmur or Rub
Pulmonary: Clear and Symmetric; Negative Wheezes or Rales
Gastrointestinal: Soft, Non Tender, Non Distended and Normal Bowel Sounds
Skin: Warm and Dry; Negative Rash or Jaundice
Objective Data
Lab Data
Lab Results
05/21/23 06:07
05/23/23 07:47
Estimated Creat Clear 55 ml/min 05/23/23 07:47
Total Bilirubin 0.4 mg/dl (0.2-1.3) 05/18/23 10:23
AST 25 U/L (14-36) 05/18/23 10:23
ALT 16 U/L (0-35) 05/18/23 10:23
Alkaline Phosphatase 74 U/L (38-126) 05/18/23 10:23
Most recent labs reviewed.
Micro Results:
05/22/23 17:23 Blood Culture - Pending
Blood/Venous
05/22/23 16:57 Blood Culture - Pending
Blood/Venous
05/18/23 15:14 Blood Culture - Preliminary
Blood/Venous No Growth in 4 days- Final report to follow
05/18/23 15:14 Blood Culture - Preliminary
Blood/Venous No Growth in 4 days- Final report to follow
05/19/23 14:18 Anaerobic Culture - Preliminary
Leg - Left Culture pending. Anaerobic cultures are examined after 3
days incubation. Additional information to follow.
05/18/23 12:53 Urine Culture - Final
Urine Klebsiella pneumoniae-ESBL
05/18/23 17:22 MRSA Screen - Final
Nose No Methicillin Resistant Staphylococcus aureus isolated.
05/18/23 15:14 Wound Culture - Final
Leg - Left Staph aureus MRSA
Klebsiella oxytoca
Gram Stain - Final
05/19/23 MRI LLE: Elongated subcutaneous collection along the anteromedial lower leg soft tissues most in keeping with abscess with open draining component/wound. No evidence for underlying osteomyelitis.
--- NOTE | 2023-05-23 11:30 | W.PN.HOSP.TC ---
Today's Communication/Plan
-
Monitor vital signs and see plan
Nephrology to see again for sodium 125
Continue with antibiotics
PT/OT
Assessment / Plan
Assessment / Plan
Left leg abscess from MRSA/Klebsiella
Chronic left leg wound
Intermittent fever episode
-Leukocytosis, patient afebrile in ER minimally tachycardic with heart rate in 90s.
-Blood culture neg so far.
-Wound culture from left lower extremity wound growing strep/gram neg bacilli
-Left lower extremity x-ray showing some air in tissue
-MRI left leg showing fluid collection in soft tissue and likely abscess, no osteomyelitis.
-ID following and help appreciated.
-General surgery evaluated and recommended wound packing follow-up in surgery office.
-Antibiotic adjusted; now on vancomycin, ertapenem
Fever 4/8; blood culture pending. Follow fever curve
Hyponatremia
-Acuity unknown, baseline unknown
-Sodium now 125, nephrology aware and will look into patient chart today
-Patient having generalized weakness/fatigue/tiredness
-Not on diuretic therapy/SSRI
-Urine Na < 5 and Uosm 128
-Nephrology following; s/p 3% 4/5
Currently on fluid restrict
Persistent cough
-Chest x-ray also did not show any acute pulmonary illness
-Discussed with patient to follow-up with pulmonology in office for cough persist
Thrombocytosis
-from chronic LLE wound
Essential Hypertension
-Continue amlodipine and lisinopril
Hyperlipidemia
-Continue atorvastatin
Hypothyroidism
-Continue levothyroxine
DVT proph: Lovenox
Code Status: Full Code
General: No Apparent Distress and Comfortable
HEENT: Negative Oxygen
Respiratory: Clear to Auscultation
Cardiac: Regular Rhythm and S1/S2; Negative Murmur or Rub
GI: Soft, Nontender and Nondistended
Musculoskeletal: No Edema and Other (Left lateral calf proximal wound)
Neuro: Awake, Alert, Oriented, No Motor Deficits and Nonfocal/Grossly Intact
Psych: Calm
Anticipated Discharge: Within 24 hours
Subjective/Interval History
-
Date of Service: May 23, 2023
Denies pain
Objective Data
-
Labs:
Laboratory Results
05/23/23
07:47
Sodium 125 L
Potassium 3.7
Chloride 92 L
Carbon Dioxide 27
BUN 6 L
Creatinine 0.4 L
Glucose 122 H
Calcium 8.4
Vital Signs:
Vital Signs
Temp Pulse Resp BP Pulse Ox
99.0 F 101 16 125/69 96
05/23/23 07:20 05/23/23 07:20 05/23/23 07:20 05/23/23 07:20 05/23/23 07:20
I&O
05/22/23 05/23/23 05/24/23
06:59 06:59 06:59
Intake Total 1020 / 1020 640 / 640
Balance 1020 / 1020 640 / 640
--- NOTE | 2023-05-23 13:22 | PN.CDI ---
CDI
- -
CDI:
Physician Documentation Request
Admit Date: 05/18/23 13:57
Dear Doctor Be,
Please review the following and provide your response in the progress notes.
Clinical Indicators:
Pt admitted with Left leg Abscess/UTI
Documented throughout the record, ' -Leukocytosis, patient afebrile in ER minimally tachycardic with heart rate in 90s...'
Progress note 05/21, ' -Antibiotic adjusted; now on vancomycin, ertapenem Fever 05/21; blood culture pending. Follow fever curve...'
Documented per H&P,' Patient reports she has not felt well for the past month. She reports she developed an upper respiratory infection and was treated with Augmentin for a sinusitis..... She admits to intermittent fevers of 101-101.5F as
recently as 5 days ago.'
On Admit HR 100, RR 24, , Tmax 100.4 on 05/21 with HR 101
Please clarify which of the following most accurately describes the status of the patient's infection:
Sepsis-POA
- Systemic manifestations of infection, with 2 or more SIRS criteria which include:
- Fever >100.4 degrees F or hypothermia < 96.8 degrees F
- Leukocytosis - WBC > 12,000 or leukopenia - WBC < 4,000 or > 10% bands
- Tachycardia > 90 beats per minute
- Tachypnea - RR > 20 breaths per minute or PaCO2 , 32mmHg
Source: Merck Manual 2013
Sepsis-Not POA
LLE Abscess/UTI only , Without Systemic Illness
Other
Use of terms such as suspected, likely, concern for, or probable (associated with a specific diagnosis that is being evaluated, monitored, or treated as if it exists) are acceptable and can be coded in the inpatient setting, when documented at the
time of discharge.
Thank you,
Laura Warner RN
CDI Specialist
[place] [facility]
Please use your independent medical judgment in providing your response.
--- NOTE | 2023-05-23 14:50 | CM ---
Patient continues with low NA.
Plan: d/c home with [facility] when stable, daughter will transport.
--- NOTE | 2023-05-23 15:16 | W.PN.NEPH.PH ---
Today's Communication / Plan
-
- reinitiate hypertonic saline
Assessment/Plan
-
Impression:
Euvolemic hyponatremia (124)
Left lower extremity wound with fevers
Hypertension
Dyslipidemia
Hypothyroidism
History of PMR
Plan:
Hyponatremia:
-dropped from 130 to 125, given 3% on 05/18
-Urine osmolality of 128, urine Na <5
- likely some component of tea/toast as patient does not eat/drink much
- encouraged patient to increase solute intake
-HTS again today
-cont fluid restriction 1200cc/day, encourage solute intake U na low
-TSH normal, cortisol ok with recent pred taper
- bp stable on meds
Left lower extremity wound: MRI no osteo
-Antibiotics directed by infectious disease
-at d/c f/u with PCP
-
-
Date of Service: May 23, 2023
CC / HPI / ROS
-
Chief Complaint:
hyponatremia
History of Present Illness:
sodium stable at 130 s/p 3% saline 05/18, BP stable
- dropped again and asked to see patient again on 05/22. reinitiate hypertonic saline
no fever
Review of Systems:
no cp or sob
no dizziness
appetite better
Labs
-
Labs:
WBC 8.4 10^3/uL (4.8-10.8) 05/21/23 06:07
RBC 4.18 10^6/uL (4.20-5.40) L 05/21/23 06:07
Hgb 11.7 g/dL (12.0-16.0) L 05/21/23 06:07
Hct 36.0 % (37.0-47.0) L 05/21/23 06:07
Plt Count 416 10^3/uL (130-400) H 05/21/23 06:07
Sodium 125 mmol/L (135-145) L 05/23/23 07:47
Potassium 3.7 mmol/L (3.5-5.1) 05/23/23 07:47
Chloride 92 mmol/L (98-107) L 05/23/23 07:47
Carbon Dioxide 27 mmol/L (22-30) 05/23/23 07:47
BUN 6 mg/dl (7-17) L 05/23/23 07:47
Creatinine 0.4 mg/dL (0.6-1.0) L 05/23/23 07:47
eGFR > 60.00 05/23/23 07:47
Glucose 122 mg/dl (70-99) H 05/23/23 07:47
Calcium 8.4 mg/dl (8.4-10.2) 05/23/23 07:47
Albumin 3.3 g/dl (3.5-5.0) L 05/18/23 10:23
Physical Exam
-
Vital Signs:
Vital Signs
Temp Pulse Resp BP Pulse Ox
99.0 F 101 16 125/69 96
05/23/23 07:20 05/23/23 07:20 05/23/23 07:20 05/23/23 07:20 05/23/23 07:20
Cardiovascular:: Regular rate and rhythm
Respiratory:: Bilateral: CTA
Lung Excursion:: Normal
Abdomen:: Nontender and Soft
Bowel Sounds:: Normal
Extremity Edema:: None: Bilateral:
Pa Catheter: No
[2023-05-23 15:32] VITALS: BP 138/77
[2023-05-23] MEDS: SODIUM CHLORIDE 3% 250 IV (15:32)
[2023-05-23] MEDS: INVANZ 60 MG IV (17:00)
[2023-05-23] MEDS: NORVASC 5 MG PO (17:02)
[2023-05-23] MEDS: LIPITOR 10 MG PO (17:02)
[2023-05-23] MEDS: LOVENOX SC ×2 (17:03→17:06)
[2023-05-23] MEDS: DAKIN'S SOLUTION 0.125% 1/4 STRENGTH TOPICAL (21:00)
[2023-05-23] MEDS: XALATAN OPHTHALMIC SOLUTION 1 DROP BOTH EYES (21:00)
[2023-05-23 23:45] VITALS: BP 138/68
[2023-05-24 05:50] VITALS: BMI 23.8
[2023-05-24] MEDS: VANCOCIN 200 IV (05:55)
[2023-05-24] MEDS: SYNTHROID 100 MCG PO (05:55)
[2023-05-24 08:00] VITALS: BP 138/60
[2023-05-24] MEDS: COSOPT EYE DROPS 1 DROP BOTH EYES ×2 (08:48→20:42)
[2023-05-24] MEDS: ZESTRIL 40 MG PO (08:48)
[2023-05-24] MEDS: FLORASTOR 250 MG PO ×2 (08:48→20:40)
[2023-05-24] MEDS: DAKIN'S SOLUTION 0.125% 1/4 STRENGTH 473 ML TOPICAL (08:51)
[2023-05-24 09:14] LABS: Blood Urea Nitrogen 5 mg/dl (7-17); Calcium 8.4 mg/dl (8.4-10.2); Carbon Dioxide 26 mmol/L (22-30); Chloride 90 mmol/L (98-107); Estimated Creatinine Clearance 55 ml/min; Glucose 142 mg/dl (70-99); Potassium 3.7 mmol/L (3.5-5.1); Sodium 124 mmol/L (135-145); eGFR > 60.00
--- NOTE | 2023-05-24 11:51 | W.PN.HOSP.TC ---
Today's Communication/Plan
-
Monitor vitals
See plan
Continue with antibiotic
Sodium persistently low, received 3% saline yesterday
Nephrology to see today
Assessment / Plan
Assessment / Plan
Suspect sepsis POA
Left leg abscess from MRSA/Klebsiella
Chronic left leg wound
Intermittent fever episode
-Leukocytosis, patient afebrile in ER minimally tachycardic with heart rate in 90s.
-Blood culture neg so far.
-Wound culture from left lower extremity wound growing strep/gram neg bacilli
-Left lower extremity x-ray showing some air in tissue
-MRI left leg showing fluid collection in soft tissue and likely abscess, no osteomyelitis.
-ID following and help appreciated.
-General surgery evaluated and recommended wound packing follow-up in surgery office.
-Antibiotic adjusted; now on vancomycin, ertapenem
Fever 05/21; blood culture NGTD. Follow fever curve
Hyponatremia
-Acuity unknown, baseline unknown
-Sodium now 124, s/p 3% 05/22; nephrology to see today
-Patient having generalized weakness/fatigue/tiredness
-Not on diuretic therapy/SSRI
-Urine Na < 5 and Uosm 128
-Nephrology following; s/p 3% 05/18; 05/22
Currently on fluid restrict
Persistent cough
-Chest x-ray also did not show any acute pulmonary illness
-Discussed with patient to follow-up with pulmonology in office for cough persist
Thrombocytosis
-from chronic LLE wound
Essential Hypertension
-Continue amlodipine and lisinopril
Hyperlipidemia
-Continue atorvastatin
Hypothyroidism
-Continue levothyroxine
DVT proph: Lovenox
Code Status: Full Code
General: No Apparent Distress and Comfortable
HEENT: Negative Oxygen
Respiratory: Clear to Auscultation
Cardiac: Regular Rhythm and S1/S2; Negative Murmur or Rub
GI: Soft, Nontender and Nondistended
Musculoskeletal: No Edema and Other (Left lateral calf proximal wound)
Neuro: Awake, Alert, Oriented, No Motor Deficits and Nonfocal/Grossly Intact
Psych: Calm
Anticipated Discharge: 24 - 48 hours
Subjective/Interval History
-
Date of Service: May 24, 2023
denies pain
Objective Data
-
Labs:
Laboratory Results
05/24/23
08:03
Sodium 124 L
Potassium 3.7
Chloride 90 L
Carbon Dioxide 26
BUN 5 L
Creatinine 0.5 L
Glucose 142 H
Calcium 8.4
Vital Signs:
Vital Signs
Temp Pulse Resp BP Pulse Ox
98.5 F 106 16 138/68 95
05/24/23 08:00 05/24/23 08:48 05/24/23 08:00 05/24/23 08:48 05/24/23 08:00
I&O
05/23/23 05/24/23 05/25/23
06:59 06:59 06:59
Intake Total 640 / 640 630 / 630
Balance 640 / 640 630 / 630
--- NOTE | 2023-05-24 14:19 | W.PN.ID1 ---
Date of Service
Date of Service: May 24, 2023
Today's Communication
- switched to levaquin augmentin - continue another 13 days
- QTc in the AM
- follow up in wound care center
Assessment / Plan
Relapse of Fever - improved
LLE myositis/abscess
- MRI: + subcutaneous abscess draining through wound, no osteo
- Per surgery no surgical intervention. S/p bedside irrigation and wash abscess cavity.
- wound culture - MRSA, Klebsiella oxytoca, anaerobic: Finegoldia, Peptostreptococcus
- urine culture with ESBL K pneumoniae
- switched to levaquin augmentin - continue another 13 days
- QTc in the AM
- follow up in wound care center
Chief Complaint
-: Other (probable osteomyelitis, suspected myositis/abscess)
Subjective / Review of Systems
no further fevers
bp stable
no cbc today
na remains 124
upset that she remains hospitalized
Vital Signs / Physical Exam
Vital Signs
Vital Signs
Temp Pulse Resp BP Pulse Ox
98.5 F 106 16 138/68 95
05/24/23 08:00 05/24/23 08:48 05/24/23 08:00 05/24/23 08:48 05/24/23 08:00
Physical Exam
Constitutional: No Acute Distress
Cardiovascular: Regular Rate and S1/S2; Negative Murmur or Rub
Pulmonary: Clear and Symmetric; Negative Wheezes or Rales
Gastrointestinal: Soft, Non Tender, Non Distended and Normal Bowel Sounds
Skin: Warm and Dry; Negative Rash or Jaundice
Wound: Other (dressing clean, dry, intact)
Objective Data
Lab Data
Lab Results
05/21/23 06:07
05/24/23 08:03
Estimated Creat Clear 55 ml/min 05/24/23 08:03
Total Bilirubin 0.4 mg/dl (0.2-1.3) 05/18/23 10:23
AST 25 U/L (14-36) 05/18/23 10:23
ALT 16 U/L (0-35) 05/18/23 10:23
Alkaline Phosphatase 74 U/L (38-126) 05/18/23 10:23
Most recent labs reviewed.
Micro Results:
05/19/23 14:18 Anaerobic Culture - Preliminary
Leg - Left Anaerobic gram positive cocci
05/22/23 17:23 Blood Culture - Preliminary
Blood/Venous No Growth in 24 hours- Final report to follow
05/22/23 16:57 Blood Culture - Preliminary
Blood/Venous No Growth in 24 hours- Final report to follow
05/18/23 15:14 Blood Culture - Final
Blood/Venous No Growth - Final Report
05/18/23 15:14 Blood Culture - Final
Blood/Venous No Growth - Final Report
05/18/23 12:53 Urine Culture - Final
Urine Klebsiella pneumoniae-ESBL
05/18/23 17:22 MRSA Screen - Final
Nose No Methicillin Resistant Staphylococcus aureus isolated.
05/18/23 15:14 Wound Culture - Final
Leg - Left Staph aureus MRSA
Klebsiella oxytoca
Gram Stain - Final
05/19/23 MRI LLE: Elongated subcutaneous collection along the anteromedial lower leg soft tissues most in keeping with abscess with open draining component/wound. No evidence for underlying osteomyelitis.
[2023-05-24 15:00] VITALS: BP 116/55
[2023-05-24] MEDS: LEVAQUIN 750 MG PO (16:16)
[2023-05-24] MEDS: BenGay-Like 1 APPLIC TOPICAL (16:17)
--- NOTE | 2023-05-24 16:25 | PTCARENOTE ---
Assumed care of patient at 15:00 from Day Shift RN.
Assessment unchanged from prior assessment. Patient continues to be ambulatory. LLE Wound Care completed by Day Shift RN.
Patient complained of R Knee Pain (chronic issue) and requested lidocaine ointment. Chevy ordered by attending MD.
--- NOTE | 2023-05-24 18:02 | W.PN.NEPH.PH ---
Today's Communication / Plan
-
sasmca
Assessment/Plan
-
Impression:
Euvolemic hyponatremia (124)
Left lower extremity wound with fevers
Hypertension
Dyslipidemia
Hypothyroidism
History of PMR
Plan:
Hyponatremia:
sodium no response to 3% saline
will dose samsca today
she seem euvolemic
BP stable
-Urine osmolality of 128, urine Na <5, on admit
encouraged patient to increase solute intake
-cont fluid restriction 1200cc/day,
-TSH normal, cortisol ok with recent pred taper
- bp stable on meds
Left lower extremity wound: MRI no osteo
-Antibiotics directed by infectious disease
-
-
Date of Service: May 24, 2023
CC / HPI / ROS
-
Chief Complaint:
hyponatremia
History of Present Illness:
sodium down to 124 s/p 3% 05/22
BP stable
no fever
Review of Systems:
no cp or sob
no dizziness
appetite better
mild right knee pain when wlaking
Labs
-
Labs:
WBC 8.4 10^3/uL (4.8-10.8) 05/21/23 06:07
RBC 4.18 10^6/uL (4.20-5.40) L 05/21/23 06:07
Hgb 11.7 g/dL (12.0-16.0) L 05/21/23 06:07
Hct 36.0 % (37.0-47.0) L 05/21/23 06:07
Plt Count 416 10^3/uL (130-400) H 05/21/23 06:07
Sodium 124 mmol/L (135-145) L 05/24/23 08:03
Potassium 3.7 mmol/L (3.5-5.1) 05/24/23 08:03
Chloride 90 mmol/L (98-107) L 05/24/23 08:03
Carbon Dioxide 26 mmol/L (22-30) 05/24/23 08:03
BUN 5 mg/dl (7-17) L 05/24/23 08:03
Creatinine 0.5 mg/dL (0.6-1.0) L 05/24/23 08:03
eGFR > 60.00 05/24/23 08:03
Glucose 142 mg/dl (70-99) H 05/24/23 08:03
Calcium 8.4 mg/dl (8.4-10.2) 05/24/23 08:03
Albumin 3.3 g/dl (3.5-5.0) L 05/18/23 10:23
Physical Exam
-
Vital Signs:
Vital Signs
Temp Pulse Resp BP Pulse Ox
98.5 F 96 18 116/55 97
05/24/23 15:00 05/24/23 15:00 05/24/23 15:00 05/24/23 15:00 05/24/23 15:00
Cardiovascular:: Regular rate and rhythm
Respiratory:: Bilateral: CTA
Lung Excursion:: Normal
Abdomen:: Nontender and Soft
Extremity Edema:: None: Bilateral:
Pa Catheter: No
[2023-05-24] MEDS: NORVASC PO (18:20)
[2023-05-24] MEDS: LIPITOR 10 MG PO (18:20)
[2023-05-24] MEDS: LOVENOX SC (18:23)
[2023-05-24] MEDS: SAMSCA 7.5 MG PO (18:53)
[2023-05-24] MEDS: AUGMENTIN 875 MG/125 MG 1 TABLET PO (20:40)
[2023-05-24] MEDS: XALATAN OPHTHALMIC SOLUTION 1 DROP BOTH EYES (20:42)
[2023-05-24 21:30] LABS: Osmolality Urine 169 mOsm/kg (300-900)
[2023-05-24] MEDS: DAKIN'S SOLUTION 0.125% 1/4 STRENGTH TOPICAL (22:45)
[2023-05-24 23:19] VITALS: BP 132/62
[2023-05-25 05:03] VITALS: BMI 23.4
[2023-05-25] MEDS: SYNTHROID 100 MCG PO (06:40)
[2023-05-25 07:30] VITALS: BP 144/70
[2023-05-25] MEDS: LEVAQUIN 750 MG PO (08:44)
[2023-05-25] MEDS: FLORASTOR 250 MG PO ×2 (08:44→20:40)
[2023-05-25] MEDS: ZESTRIL 40 MG PO (08:44)
[2023-05-25] MEDS: AUGMENTIN 875 MG/125 MG 1 TABLET PO ×2 (08:44→20:40)
[2023-05-25] MEDS: DAKIN'S SOLUTION 0.125% 1/4 STRENGTH TOPICAL ×3 (08:45→20:42)
[2023-05-25] MEDS: COSOPT EYE DROPS 1 DROP BOTH EYES ×2 (08:45→20:40)
[2023-05-25 08:55] LABS: Blood Urea Nitrogen 5 mg/dl (7-17); Calcium 8.6 mg/dl (8.4-10.2); Carbon Dioxide 28 mmol/L (22-30); Chloride 94 mmol/L (98-107); Estimated Creatinine Clearance 55 ml/min; Glucose 107 mg/dl (70-99); Potassium 3.7 mmol/L (3.5-5.1); Sodium 130 mmol/L (135-145); eGFR > 60.00
--- NOTE | 2023-05-25 12:17 | W.PN.HOSP.TC ---
Today's Communication/Plan
-
Monitor vital signs and see plan
Sodium improved to 130, spoke with nephrology and will monitor another day
Continue with antibiotics
Assessment / Plan
Assessment / Plan
Suspect sepsis POA
Left leg abscess from MRSA/Klebsiella
Chronic left leg wound
Intermittent fever episode
-Leukocytosis, patient afebrile in ER minimally tachycardic with heart rate in 90s.
-Blood culture neg so far.
-Wound culture from left lower extremity wound growing strep/gram neg bacilli
-Left lower extremity x-ray showing some air in tissue
-MRI left leg showing fluid collection in soft tissue and likely abscess, no osteomyelitis.
-ID following and help appreciated.
-General surgery evaluated and recommended wound packing follow-up in surgery office.
-Antibiotic adjusted; now on Levaquin and Augmentin. QTc acceptable
Fever 05/21; blood culture NGTD. Follow fever curve
Hyponatremia
-Acuity unknown, baseline unknown
-Sodium now 130, s/p 3% 05/22; status post Samsca 05/23. Nephrology following
-Patient having generalized weakness/fatigue/tiredness
-Not on diuretic therapy/SSRI
-Urine Na < 5 and Uosm 128
-Nephrology following; s/p 3% 05/18; 05/22
Currently on fluid restrict
spoke with nephrology; will monitor another day and nephrology might start lasix
Persistent cough
-Chest x-ray also did not show any acute pulmonary illness
-Discussed with patient to follow-up with pulmonology in office for cough persist
Thrombocytosis
-from chronic LLE wound
Essential Hypertension
-Continue amlodipine and lisinopril
Hyperlipidemia
-Continue atorvastatin
Hypothyroidism
-Continue levothyroxine
DVT proph: Lovenox
Code Status: Full Code
General: No Apparent Distress and Comfortable
HEENT: Negative Oxygen
Respiratory: Clear to Auscultation
Cardiac: Regular Rhythm and S1/S2; Negative Murmur or Rub
GI: Soft, Nontender and Nondistended
Musculoskeletal: No Edema and Other (Left lateral calf proximal wound)
Neuro: Awake, Alert, Oriented, No Motor Deficits and Nonfocal/Grossly Intact
Psych: Calm
Anticipated Discharge: Within 24 hours
Subjective/Interval History
-
Date of Service: May 25, 2023
Denies pain
Objective Data
-
Labs:
Laboratory Results
05/25/23
07:46
Sodium 130 L
Potassium 3.7
Chloride 94 L
Carbon Dioxide 28
BUN 5 L
Creatinine 0.5 L
Glucose 107 H
Calcium 8.6
Vital Signs:
Vital Signs
Temp Pulse Resp BP Pulse Ox
98.2 F 96 16 144/70 96
05/25/23 07:30 05/25/23 08:44 05/25/23 07:30 05/25/23 08:44 05/25/23 07:30
I&O
05/24/23 05/25/23 05/26/23
06:59 06:59 06:59
Intake Total 630 / 630 720 / 720
Balance 630 / 630 720 / 720
--- NOTE | 2023-05-25 14:27 | W.PN.ID1 ---
Date of Service
Date of Service: May 25, 2023
Today's Communication
- continue levaquin augmentin - continue another 12 days
- QTc acceptable
- PRN imodium and ondansetron added
- follow up in wound care center
Assessment / Plan
LLE myositis/abscess
- wound culture - MRSA, Klebsiella oxytoca, anaerobic: Finegoldia, Peptostreptococcus
- urine culture with ESBL K pneumoniae
- continue levaquin augmentin - continue another 12 days
- QTc acceptable
- PRN imodium and ondansetron added
- follow up in wound care center
Chief Complaint
-: Other (probable osteomyelitis, suspected myositis/abscess)
Subjective / Review of Systems
afebrile
bp stable
without leukocytosis
cr stable
blood cultures no growth to date
loose stools, some nausea
na better
Vital Signs / Physical Exam
Vital Signs
Vital Signs
Temp Pulse Resp BP Pulse Ox
98.2 F 96 16 144/70 96
05/25/23 07:30 05/25/23 08:44 05/25/23 07:30 05/25/23 08:44 05/25/23 07:30
Physical Exam
Constitutional: No Acute Distress
Cardiovascular: Regular Rate and S1/S2; Negative Murmur or Rub
Pulmonary: Clear and Symmetric; Negative Wheezes or Rales
Gastrointestinal: Soft, Non Tender, Non Distended and Normal Bowel Sounds
Skin: Warm and Dry; Negative Rash or Jaundice
Wound: Other (healing, - serous drainage noted, no surrounding erythema or fluctuance)
Objective Data
Lab Data
Lab Results
05/21/23 06:07
05/25/23 07:46
Estimated Creat Clear 55 ml/min 05/25/23 07:46
Total Bilirubin 0.4 mg/dl (0.2-1.3) 05/18/23 10:23
AST 25 U/L (14-36) 05/18/23 10:23
ALT 16 U/L (0-35) 05/18/23 10:23
Alkaline Phosphatase 74 U/L (38-126) 05/18/23 10:23
Most recent labs reviewed.
Micro Results:
05/22/23 17:23 Blood Culture - Preliminary
Blood/Venous No Growth in 48 hours- Final report to follow
05/22/23 16:57 Blood Culture - Preliminary
Blood/Venous No Growth in 48 hours- Final report to follow
05/19/23 14:18 Anaerobic Culture - Final
Leg - Left Peptostreptococcus tetradius
Finegoldia magna
05/18/23 15:14 Blood Culture - Final
Blood/Venous No Growth - Final Report
05/18/23 15:14 Blood Culture - Final
Blood/Venous No Growth - Final Report
05/18/23 12:53 Urine Culture - Final
Urine Klebsiella pneumoniae-ESBL
05/18/23 17:22 MRSA Screen - Final
Nose No Methicillin Resistant Staphylococcus aureus isolated.
05/18/23 15:14 Wound Culture - Final
Leg - Left Staph aureus MRSA
Klebsiella oxytoca
Gram Stain - Final
05/19/23 MRI LLE: Elongated subcutaneous collection along the anteromedial lower leg soft tissues most in keeping with abscess with open draining component/wound. No evidence for underlying osteomyelitis.
[2023-05-25] MEDS: IMODIUM 2 MG PO (15:14)
[2023-05-25 16:00] VITALS: BP 116/72
[2023-05-25] MEDS: NORVASC 5 MG PO (18:10)
[2023-05-25] MEDS: LASIX 20 MG PO (18:10)
[2023-05-25] MEDS: LIPITOR 10 MG PO (18:10)
[2023-05-25] MEDS: LOVENOX SC (18:11)
--- NOTE | 2023-05-25 18:13 | W.PN.NEPH.PH ---
Addendum entered and electronically signed by Caren Perez MD 05/29/23 16:24:
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
Addendum entered and electronically signed by Caren Perez MD 05/25/23 18:18:
U osmo last night was low from samsca use
Original Note:
Today's Communication / Plan
-
see plan
Assessment/Plan
-
Impression:
Euvolemic hyponatremia (124)
Left lower extremity wound with fevers
Hypertension
Dyslipidemia
Hypothyroidism
History of PMR
Plan:
Hyponatremia:
sodium better to 130post [facility] 05/23
will start low dose lasix and should cont at d/c
maintain FR
BP stable
-Antibiotics directed by infectious disease
If sodium better tomorrow ok for d/c
f/u with PCP, nephro if needed
BMP on Monday
d/w pt and primary
-
-
Date of Service: May 25, 2023
CC / HPI / ROS
-
Chief Complaint:
hyponatremia
History of Present Illness:
sodium better to 130 [place] [facility] [place]
BP stable
no fever
Review of Systems:
no cp or sob
no dizziness
appetite better
Labs
-
Labs:
WBC 8.4 10^3/uL (4.8-10.8) 05/21/23 06:07
RBC 4.18 10^6/uL (4.20-5.40) L 05/21/23 06:07
Hgb 11.7 g/dL (12.0-16.0) L 05/21/23 06:07
Hct 36.0 % (37.0-47.0) L 05/21/23 06:07
Plt Count 416 10^3/uL (130-400) H 05/21/23 06:07
Sodium 130 mmol/L (135-145) L 05/25/23 07:46
Potassium 3.7 mmol/L (3.5-5.1) 05/25/23 07:46
Chloride 94 mmol/L (98-107) L 05/25/23 07:46
Carbon Dioxide 28 mmol/L (22-30) 05/25/23 07:46
BUN 5 mg/dl (7-17) L 05/25/23 07:46
Creatinine 0.5 mg/dL (0.6-1.0) L 05/25/23 07:46
eGFR > 60.00 05/25/23 07:46
Glucose 107 mg/dl (70-99) H 05/25/23 07:46
Calcium 8.6 mg/dl (8.4-10.2) 05/25/23 07:46
Albumin 3.3 g/dl (3.5-5.0) L 05/18/23 10:23
Physical Exam
-
Vital Signs:
Vital Signs
Temp Pulse Resp BP Pulse Ox
98.0 F 104 16 116/72 97
05/25/23 16:00 05/25/23 16:00 05/25/23 16:00 05/25/23 16:00 05/25/23 16:00
Cardiovascular:: Regular rate and rhythm
Respiratory:: Bilateral: CTA
Lung Excursion:: Normal
Abdomen:: Nontender and Soft
Extremity Edema:: None: Bilateral:
Pa Catheter: No
[2023-05-25] MEDS: XALATAN OPHTHALMIC SOLUTION 1 DROP BOTH EYES (21:04)
[2023-05-25 23:00] VITALS: BP 142/69
[2023-05-26 05:53] VITALS: BMI 23.7
[2023-05-26] MEDS: SYNTHROID 100 MCG PO (06:14)
[2023-05-26 07:00] VITALS: BP 122/72
[2023-05-26] MEDS: LASIX 20 MG PO (08:46)
[2023-05-26] MEDS: FLORASTOR 250 MG PO ×2 (08:46→20:26)
[2023-05-26] MEDS: LEVAQUIN 750 MG PO (08:46)
[2023-05-26] MEDS: AUGMENTIN 875 MG/125 MG 1 TABLET PO ×2 (08:46→20:26)
[2023-05-26] MEDS: ZESTRIL 40 MG PO (08:47)
[2023-05-26] MEDS: COSOPT EYE DROPS 1 DROP BOTH EYES ×2 (08:47→20:26)
[2023-05-26] MEDS: DAKIN'S SOLUTION 0.125% 1/4 STRENGTH TOPICAL ×2 (08:47→19:58)
[2023-05-26 08:51] LABS: Blood Urea Nitrogen 8 mg/dl (7-17); Calcium 8.4 mg/dl (8.4-10.2); Carbon Dioxide 27 mmol/L (22-30); Chloride 91 mmol/L (98-107); Estimated Creatinine Clearance 55 ml/min; Glucose 112 mg/dl (70-99); Potassium 3.9 mmol/L (3.5-5.1); Sodium 127 mmol/L (135-145); eGFR > 60.00
--- NOTE | 2023-05-26 09:17 | PN.CDI ---
CDI
- -
CDI:
Physician Documentation Request
Admit Date: 05/18/23 13:57
Dear Doctor,
Please review the following and provide your response in the progress notes.
Clinical Indicators:
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
Other: Documented per nephrology consult /Progress note 05-19 &05-20,' Urine osmolality of 128 does not suggest SIADH, although presence of longstanding URI would suggest SIADH etiology cont fluid restriction 1200cc/day, encourage solute intake U na
low..'
Pt did get 3% on 05/22 and Samsca 05-18 ,05-22&05-23
Please update the status of SIADH documented in the record:
SIADH -Still being monitored /treated
SIADH -ruled out
Other
Use of terms such as suspected, likely, concern for, or probable (associated with a specific diagnosis that is being evaluated, monitored, or treated as if it exists) are acceptable and can be coded in the inpatient setting, when documented at the
time of discharge.
Thank you,
Laura Warner RN
CDI Specialist
[place] [employer]
Please use your independent medical judgment in providing your response.
[2023-05-26 10:33] LABS: Osmolality Urine 346 mOsm/kg (300-900)
--- NOTE | 2023-05-26 13:38 | W.PN.HOSP.TC ---
Today's Communication/Plan
-
Monitor vitals
See plan
Continue with Lasix
apply cold compress to right wrist and elbow
Monitor sodium
Assessment / Plan
Assessment / Plan
Suspect sepsis POA
Left leg abscess from MRSA/Klebsiella
Chronic left leg wound
Intermittent fever episode
-Leukocytosis, patient afebrile in ER minimally tachycardic with heart rate in 90s.
-Blood culture neg so far.
-Wound culture from left lower extremity wound growing strep/gram neg bacilli
-Left lower extremity x-ray showing some air in tissue
-MRI left leg showing fluid collection in soft tissue and likely abscess, no osteomyelitis.
-ID following and help appreciated.
-General surgery evaluated and recommended wound packing follow-up in surgery office.
-Antibiotic adjusted; now on Levaquin and Augmentin. QTc acceptable
Fever 05/21; blood culture NGTD. Follow fever curve
Hyponatremia
-Acuity unknown, baseline unknown
-Sodium now 127, s/p 3% 05/22; status post Samsca 05/23. Nephrology following
-Patient having generalized weakness/fatigue/tiredness
-Not on diuretic therapy/SSRI
-Urine Na < 5 and Uosm 128
-Nephrology following; s/p 3% 05/18; 05/22
Currently on fluid restrict
Now started on Lasix
Right wrist and elbow swelling
X-ray consistent with possible chondrocalcinosis. no fracture. Will apply ice packs
Persistent cough
-Chest x-ray also did not show any acute pulmonary illness
-Discussed with patient to follow-up with pulmonology in office for cough persist
Thrombocytosis
-from chronic LLE wound
Essential Hypertension
-Continue amlodipine and lisinopril
Hyperlipidemia
-Continue atorvastatin
Hypothyroidism
-Continue levothyroxine
DVT proph: Lovenox
Code Status: Full Code
General: No Apparent Distress and Comfortable
HEENT: Negative Oxygen
Respiratory: Clear to Auscultation
Cardiac: Regular Rhythm and S1/S2; Negative Murmur or Rub
GI: Soft, Nontender and Nondistended
Musculoskeletal: No Edema and Other (Left lateral calf proximal wound)
Neuro: Awake, Alert, Oriented, No Motor Deficits and Nonfocal/Grossly Intact
Psych: Calm
Anticipated Discharge: Within 24 hours
Subjective/Interval History
-
Date of Service: May 26, 2023
denies pain
Objective Data
-
Labs:
Laboratory Results
05/26/23
07:44
Sodium 127 L
Potassium 3.9
Chloride 91 L
Carbon Dioxide 27
BUN 8
Creatinine 0.5 L
Glucose 112 H
Calcium 8.4
Vital Signs:
Vital Signs
Temp Pulse Resp BP Pulse Ox
98.3 F 97 12 122/72 97
05/26/23 07:00 05/26/23 08:47 05/26/23 07:00 05/26/23 08:47 05/26/23 07:00
I&O
05/25/23 05/26/23 05/27/23
06:59 06:59 06:59
Intake Total 720 / 720 860 / 860
Balance 720 / 720 860 / 860
--- NOTE | 2023-05-26 14:29 | W.PN.NEPH.PH ---
Today's Communication / Plan
-
- continue lasix
- monitor stability of Na
Assessment/Plan
-
Impression:
Euvolemic hyponatremia (124)
Left lower extremity wound with fevers
Hypertension
Dyslipidemia
Hypothyroidism
History of PMR
Plan:
Hyponatremia:
sodium better to 130 but then dropped to 127 [place] [facility]
will start low dose lasix and should cont at d/c
maintain FR
BP stable
Antibiotics directed by infectious disease
If sodium stable tomorrow ok for d/c
f/u with PCP, nephro if needed
BMP on Monday
d/w pt
-
-
Date of Service: May 26, 2023
CC / HPI / ROS
-
Chief Complaint:
hyponatremia
History of Present Illness:
sodium better to 130 s/p [facility] [place]. dropped again to 127
BP stable
no fever
Review of Systems:
no cp or sob
no dizziness
appetite better
Labs
-
Labs:
WBC 8.4 10^3/uL (4.8-10.8) 05/21/23 06:07
RBC 4.18 10^6/uL (4.20-5.40) L 05/21/23 06:07
Hgb 11.7 g/dL (12.0-16.0) L 05/21/23 06:07
Hct 36.0 % (37.0-47.0) L 05/21/23 06:07
Plt Count 416 10^3/uL (130-400) H 05/21/23 06:07
Sodium 127 mmol/L (135-145) L 05/26/23 07:44
Potassium 3.9 mmol/L (3.5-5.1) 05/26/23 07:44
Chloride 91 mmol/L (98-107) L 05/26/23 07:44
Carbon Dioxide 27 mmol/L (22-30) 05/26/23 07:44
BUN 8 mg/dl (7-17) 05/26/23 07:44
Creatinine 0.5 mg/dL (0.6-1.0) L 05/26/23 07:44
eGFR > 60.00 05/26/23 07:44
Glucose 112 mg/dl (70-99) H 05/26/23 07:44
Calcium 8.4 mg/dl (8.4-10.2) 05/26/23 07:44
Albumin 3.3 g/dl (3.5-5.0) L 05/18/23 10:23
Physical Exam
-
Vital Signs:
Vital Signs
Temp Pulse Resp BP Pulse Ox
98.3 F 97 12 122/72 97
05/26/23 07:00 05/26/23 08:47 05/26/23 07:00 05/26/23 08:47 05/26/23 07:00
Cardiovascular:: Regular rate and rhythm
Respiratory:: Bilateral: CTA
Lung Excursion:: Normal
Abdomen:: Nontender and Soft
Bowel Sounds:: Normal
Extremity Edema:: +1: Bilateral:
Pa Catheter: No
[2023-05-26 15:30] VITALS: BP 141/80
[2023-05-26] MEDS: LOVENOX SC (17:09)
[2023-05-26] MEDS: NORVASC 5 MG PO (18:00)
[2023-05-26] MEDS: LIPITOR 10 MG PO (18:01)
[2023-05-26] MEDS: TYLENOL 650 MG PO (18:02)
[2023-05-26] MEDS: XALATAN OPHTHALMIC SOLUTION 1 DROP BOTH EYES (20:27)
[2023-05-26 23:25] VITALS: BP 109/60
[2023-05-27 05:36] VITALS: BMI 23.5
[2023-05-27] MEDS: SYNTHROID 100 MCG PO (05:54)
[2023-05-27 07:15] VITALS: BP 136/65
[2023-05-27 08:58] LABS: Blood Urea Nitrogen 11 mg/dl (7-17); Calcium 8.4 mg/dl (8.4-10.2); Carbon Dioxide 28 mmol/L (22-30); Chloride 93 mmol/L (98-107); Estimated Creatinine Clearance 55 ml/min; Glucose 96 mg/dl (70-99); Potassium 4.1 mmol/L (3.5-5.1); Sodium 129 mmol/L (135-145); eGFR > 60.00
[2023-05-27] MEDS: AUGMENTIN 875 MG/125 MG 1 TABLET PO (09:03)
[2023-05-27] MEDS: LEVAQUIN 750 MG PO (09:03)
[2023-05-27] MEDS: LASIX 20 MG PO (09:03)
[2023-05-27] MEDS: FLORASTOR 250 MG PO (09:03)
[2023-05-27] MEDS: ZESTRIL 40 MG PO (09:03)
[2023-05-27] MEDS: COSOPT EYE DROPS 1 DROP BOTH EYES (09:05)
[2023-05-27] MEDS: DAKIN'S SOLUTION 0.125% 1/4 STRENGTH TOPICAL (09:58)
--- NOTE | 2023-05-27 11:34 | W.PN.HOSP.TC ---
Today's Communication/Plan
-
Monitor vital signs see plan
Monitor sodium
Discharged on Lasix with no restriction
Continue with antibiotics
Time of discharge 38 minutes
Assessment / Plan
Assessment / Plan
Suspect sepsis POA
Left leg abscess from MRSA/Klebsiella
Chronic left leg wound
Intermittent fever episode
-Leukocytosis, patient afebrile in ER minimally tachycardic with heart rate in 90s.
-Blood culture neg so far.
-Wound culture from left lower extremity wound growing strep/gram neg bacilli
-Left lower extremity x-ray showing some air in tissue
-MRI left leg showing fluid collection in soft tissue and likely abscess, no osteomyelitis.
-ID following and help appreciated.
-General surgery evaluated and recommended wound packing follow-up in surgery office.
-Antibiotic adjusted; now on Levaquin and Augmentin. QTc acceptable
Fever 05/21; blood culture NGTD. Follow fever curve
Hyponatremia
-Acuity unknown, baseline unknown
-Sodium now 129, s/p 3% 05/22; status post Samsca 05/23. Nephrology following
-Patient having generalized weakness/fatigue/tiredness
-Not on diuretic therapy/SSRI
-Urine Na < 5 and Uosm 128
-Nephrology following; s/p 3% 05/18; 05/22
Currently on fluid restrict
Now started on Lasix, nephrology recommended Lasix and fluid restriction on discharge. Repeat BMP next week
Right wrist and elbow swelling
X-ray consistent with possible chondrocalcinosis. no fracture. Swelling has improved with ice packs
Persistent cough
-Chest x-ray also did not show any acute pulmonary illness
-Discussed with patient to follow-up with pulmonology in office for cough persist
Thrombocytosis
-from chronic LLE wound
Essential Hypertension
-Continue amlodipine and lisinopril
Hyperlipidemia
-Continue atorvastatin
Hypothyroidism
-Continue levothyroxine
DVT proph: Lovenox
Code Status: Full Code
General: No Apparent Distress and Comfortable
HEENT: Negative Oxygen
Respiratory: Clear to Auscultation
Cardiac: Regular Rhythm and S1/S2; Negative Murmur or Rub
GI: Soft, Nontender and Nondistended
Musculoskeletal: No Edema and Other (Left lateral calf proximal wound)
Neuro: Awake, Alert, Oriented, No Motor Deficits and Nonfocal/Grossly Intact
Psych: Calm
Anticipated Discharge: Today
Subjective/Interval History
-
Date of Service: May 27, 2023
Denies nausea
Objective Data
-
Labs:
Laboratory Results
05/27/23
07:13
Sodium 129 L
Potassium 4.1
Chloride 93 L
Carbon Dioxide 28
BUN 11
Creatinine 0.5 L
Glucose 96
Calcium 8.4
Vital Signs:
Vital Signs
Temp Pulse Resp BP Pulse Ox
98.1 F 90 14 136/65 96
05/27/23 07:15 05/27/23 07:15 05/27/23 07:15 05/27/23 07:15 05/27/23 07:15
I&O
05/26/23 05/27/23 05/28/23
06:59 06:59 06:59
Intake Total 860 / 860 660 / 660
Balance 860 / 860 660 / 660
--- NOTE | 2023-05-27 11:43 | W.DCSUMMARY ---
Discharge Summary
Discharge Data
Date of Admission: 05/18/23
Date of Discharge: 05/27/23
-
Pending Results: No
Hospital Course
88-year-old female with past medical history of essential hypertension, hyperlipidemia, hypothyroidism came to the hospital with sepsis secondary to left lower extremity myositis and abscess. Patient was seen by infectious disease throughout
hospitalization and was initially on IV antibiotics and was later transitioned to Levaquin and Augmentin prior to discharge. Patient was also seen by surgery and had MRI which did show fluid collection with likely abscess. Surgery did not
recommend any surgical intervention just wanted to control this through wound packing. On this hospitalization patient also had persistent hyponatremia for which she was seen by nephrology. She received 3% saline along with Samsca which improved
her symptoms. Due to her persistent hyponatremia nephrology recommended patient to be started on standing daily Lasix and fluid restriction which was continued upon discharge. Patient instructed to get repeat BMP outpatient. Patient also had
right wrist and elbow swelling where x-ray was consistent with possible chondrocalcinosis. Patient symptoms improved with ice packs. Once patient symptoms continue to improve, she was then discharged home with instructions to follow-up with all
her physicians outpatient.
Discharge Plan
-
Patient Disposition: Home with Home Care
Discharge Diagnosis/Procedures: Sepsis secondary to left lower extremity myositis/abscess
Hyponatremia
Right wrist and elbow chondrocalcinosis
Persistent cough
Diet: As tolerated and Other diet
Additional Diets: 40 ounce fluid restriction
Activity: As tolerated
Driving Restrictions: As prior to admission
Bathing Restrictions: None
Blood Work: BMP next week with primary care provider
Activity Restrictions/Additional Instructions:
Wound Care Instructions Left Leg Wound- Clean with sterile saline. Apply no-sting barrier around wound. Pack wound with MESALT RIBBON one longer piece going upwards and one going downwards and cover wound with alginate, ABD and wrap with anthony
or kerlix. Change BID and PRN for drainage.
Resume compression of left leg and follow up with Dr Lauren later this week.
Follow up at wound care center call for an appointment.
Referrals:
Dario Clemente DO [Active] -
Kaylin Santoyo DO [Active] -
Ana María Hernandez CRNP [Family Provider] - in less than 1 week
Alessio Lauren MD [Active] - in less than 1 week
Prescriptions:
New
amoxicillin-pot clavulanate 875-125 mg Tablet
1 tab PO Q12 Qty: 22 0RF
loperamide 2 mg Capsule
2 mg PO Q6HPRN PRN (Reason: diarrhea) Qty: 0 0RF
furosemide 20 mg Tablet
20 mg PO DAILY Qty: 30 0RF
levofloxacin 750 mg Tablet
750 mg PO DAILY Qty: 11 0RF
Saccharomyces boulardii 250 mg Capsule
250 mg PO BID Qty: 30 0RF
Continued
latanoprost 0.005 % Drops
1 drp BOTH EYES HS
atorvastatin 10 mg Tablet
10 mg PO QPM
amlodipine 5 mg Tablet
5 mg PO QPM
acetaminophen [Tylenol Extra Strength] 500 mg Tablet
1,000 mg PO Q6H PRN (Reason: mild pain)
levothyroxine 100 mcg Tablet
100 mcg PO DAILY@0700
dorzolamide-timolol 22.3-6.8 mg/mL Drops
1 drp BOTH EYES BID
lisinopril 40 mg Tablet
40 mg PO DAILY
(DME) Mesalt 0.75 X 39 ' Bandage
1 applic topical NOON
Patient Comments:
05/18/2023, for wound care.
Mucinex DM
1 tab PO DAILYPRN PRN (Reason: congestion)
Prebiotic + Probiotic
2 gummy PO DAILY
Discharge Orders:
Discharge Patient (As Directed); Ordered 05/27/23
Ordered By: Lg Lr
Discharge Date and Time
Discharge Date/Time: 05/27/23 13:32
Print Language: BERMUDIAN
--- NOTE | 2023-05-27 12:11 | CM ---
Patient is for discharge to home home today, daughter to transport.
Plan; Home with VN.
[2023-05-27 12:16] VITALS: BP 113/66
== END 2023-05-27 13:32 | disposition home health service (06) | DRG 872 ==
LOC: 4 WEST ACU 13:57
PROVIDERS: Internal Medicine; Physician Assistant Medical; Registered Nurse; Student in an Organized Health Care Education/Training Program; ADMITTING PHYSICIAN Hospitalist; ATTENDING PHYSICIAN Internal Medicine; CONSULT PHYSICIAN Specialist; CONSULT PHYSICIAN Student in an Organized Health Care Education/Training Program; CONSULT PHYSICIAN Surgery; EMERGENCY PHYSICIAN Emergency Medicine; FAMILY PHYSICIAN Nurse Practitioner
DX: A41.02 Sepsis due to Methicillin resistant Staphylococcus aureus (principal); L02.416 Cutaneous abscess of left lower limb; L97.808 Non-pressure chronic ulcer of other part of unspecified lower leg with other specified severity; M60.062 Infective myositis, left lower leg; L03.116 Cellulitis of left lower limb; E22.2 Syndrome of inappropriate secretion of antidiuretic hormone; B96.1 Klebsiella pneumoniae [K. pneumoniae] as the cause of diseases classified elsewhere; R79.89 Other specified abnormal findings of blood chemistry; J06.9 Acute upper respiratory infection, unspecified; I10 Essential (primary) hypertension; E78.00 Pure hypercholesterolemia, unspecified; M11.221 Other chondrocalcinosis, right elbow; M11.231 Other chondrocalcinosis, right wrist; E03.9 Hypothyroidism, unspecified; M35.3 Polymyalgia rheumatica; D75.839 Thrombocytosis, unspecified; Z79.890 Hormone replacement therapy; Z87.828 Personal history of other (healed) physical injury and trauma
CPT/HCPCS: 71046; 73080; 73110; 73590; 73720; 80048; 80053; 81003; 81015; 82533; 83735; 83930; 83935; 84295; 84300; 84443; 85025; 85027; 87040; 87070; 87075; 87076; 87077; 87086; 87147; 87186; 87205; 93005; 97116; 97162; 97165; 99285; A9575; J1335

== ENCOUNTER → 2023-06-01 11:28 | Outpatient (REF) | payer MEDICARE, OTHER, SELFPAY | LOC: WOUND 11:28 | PROVIDERS: ATTENDING PHYSICIAN Surgery; FAMILY PHYSICIAN Nurse Practitioner | DX: L97.822 Non-pressure chronic ulcer of other part of left lower leg with fat layer exposed (principal); S81.802A Unspecified open wound, left lower leg, initial encounter; S81.811A Laceration without foreign body, right lower leg, initial encounter; M35.3 Polymyalgia rheumatica; I10 Essential (primary) hypertension; R79.82 Elevated C-reactive protein (CRP); Z79.52 Long term (current) use of systemic steroids; V89.0XXA Person injured in unspecified motor-vehicle accident, nontraffic, initial encounter | CPT/HCPCS: 99213 ==

== ENCOUNTER → 2023-06-08 13:46 | Outpatient (REF) | payer MEDICARE, OTHER, SELFPAY | LOC: WOUND 13:46 | PROVIDERS: ATTENDING PHYSICIAN Surgery; FAMILY PHYSICIAN Nurse Practitioner | DX: L97.822 Non-pressure chronic ulcer of other part of left lower leg with fat layer exposed (principal); S81.802A Unspecified open wound, left lower leg, initial encounter; S81.811A Laceration without foreign body, right lower leg, initial encounter; M35.3 Polymyalgia rheumatica; R79.82 Elevated C-reactive protein (CRP); I10 Essential (primary) hypertension; Z79.52 Long term (current) use of systemic steroids; V49.88XA Car occupant (driver) (passenger) injured in other specified transport accidents, initial encounter | CPT/HCPCS: 11042 ==

== ENCOUNTER → 2023-06-15 11:27 | Outpatient (REF) | payer MEDICARE, OTHER, SELFPAY | LOC: WOUND 11:27 | PROVIDERS: ATTENDING PHYSICIAN Surgery; FAMILY PHYSICIAN Nurse Practitioner | DX: L97.822 Non-pressure chronic ulcer of other part of left lower leg with fat layer exposed (principal); S81.802A Unspecified open wound, left lower leg, initial encounter; S81.811A Laceration without foreign body, right lower leg, initial encounter; M35.3 Polymyalgia rheumatica; I10 Essential (primary) hypertension; R79.82 Elevated C-reactive protein (CRP); Z79.52 Long term (current) use of systemic steroids; X58.XXXA Exposure to other specified factors, initial encounter | CPT/HCPCS: 11042 ==

== ENCOUNTER → 2023-06-29 10:19 | Outpatient (REF) | payer MEDICARE, OTHER, SELFPAY | LOC: WOUND 10:19 | PROVIDERS: ATTENDING PHYSICIAN Surgery; FAMILY PHYSICIAN Nurse Practitioner | DX: L97.822 Non-pressure chronic ulcer of other part of left lower leg with fat layer exposed (principal); S81.811A Laceration without foreign body, right lower leg, initial encounter; S81.802A Unspecified open wound, left lower leg, initial encounter; M35.3 Polymyalgia rheumatica; R79.82 Elevated C-reactive protein (CRP); I10 Essential (primary) hypertension; Z79.52 Long term (current) use of systemic steroids; X58.XXXA Exposure to other specified factors, initial encounter | CPT/HCPCS: 11042 ==

== ENCOUNTER → 2023-07-13 10:25 | Outpatient (REF) | payer MEDICARE, OTHER, SELFPAY | LOC: WOUND 10:25 | PROVIDERS: ATTENDING PHYSICIAN Surgery; FAMILY PHYSICIAN Nurse Practitioner | DX: L97.822 Non-pressure chronic ulcer of other part of left lower leg with fat layer exposed (principal); S81.802A Unspecified open wound, left lower leg, initial encounter; S81.811A Laceration without foreign body, right lower leg, initial encounter; M35.3 Polymyalgia rheumatica; I10 Essential (primary) hypertension; R79.82 Elevated C-reactive protein (CRP); Z79.52 Long term (current) use of systemic steroids; V49.9XXA Car occupant (driver) (passenger) injured in unspecified traffic accident, initial encounter | CPT/HCPCS: 99213 ==

== ENCOUNTER → 2023-07-25 07:36 | Outpatient (REF) | payer MEDICARE, OTHER, SELFPAY | LOC: EMG 07:36 | PROVIDERS: ATTENDING PHYSICIAN Orthopaedic Surgery; FAMILY PHYSICIAN Nurse Practitioner | DX: R20.0 Anesthesia of skin (principal); G56.01 Carpal tunnel syndrome, right upper limb | CPT/HCPCS: 95886; 95909 ==

== ENCOUNTER → 2023-07-27 10:34 | Outpatient (REF) | payer MEDICARE, OTHER, SELFPAY | LOC: WOUND 10:34 | PROVIDERS: ATTENDING PHYSICIAN Surgery; FAMILY PHYSICIAN Nurse Practitioner | DX: L97.822 Non-pressure chronic ulcer of other part of left lower leg with fat layer exposed (principal); S81.811A Laceration without foreign body, right lower leg, initial encounter; S81.802A Unspecified open wound, left lower leg, initial encounter; M35.3 Polymyalgia rheumatica; I10 Essential (primary) hypertension; R79.82 Elevated C-reactive protein (CRP); Z79.52 Long term (current) use of systemic steroids; X58.XXXA Exposure to other specified factors, initial encounter | CPT/HCPCS: 99212 ==

== ENCOUNTER → 2023-09-05 11:23 | Outpatient (REF) | payer MEDICARE, OTHER, SELFPAY | LOC: HWWDC 11:23 | PROVIDERS: ATTENDING PHYSICIAN Nurse Practitioner | DX: Z12.31 Encounter for screening mammogram for malignant neoplasm of breast (principal) | CPT/HCPCS: 77063; 77067 ==

== ENCOUNTER → 2024-02-27 12:44 | Outpatient (REF) | payer MEDICARE, OTHER, SELFPAY | LOC: HWRAD 12:44 | PROVIDERS: ATTENDING PHYSICIAN Physician Assistant; FAMILY PHYSICIAN Nurse Practitioner | DX: M54.50 Low back pain, unspecified (principal) | CPT/HCPCS: 72100 ==

== ENCOUNTER → 2024-06-10 09:37 | Outpatient (REF) | payer MEDICARE, OTHER, SELFPAY | LOC: HWRAD 09:37 | PROVIDERS: ATTENDING PHYSICIAN Physician Assistant; FAMILY PHYSICIAN Nurse Practitioner | DX: M81.0 Age-related osteoporosis without current pathological fracture (principal) | CPT/HCPCS: 77080 ==

== ENCOUNTER → 2024-09-05 11:34 | Outpatient (REF) | payer MEDICARE, OTHER, SELFPAY | LOC: HWWDC 11:34 | PROVIDERS: ATTENDING PHYSICIAN Nurse Practitioner | DX: Z12.31 Encounter for screening mammogram for malignant neoplasm of breast (principal) | CPT/HCPCS: 77063; 77067 ==

== ENCOUNTER → 2024-09-09 12:38 | Outpatient (REF) | payer MEDICARE, OTHER, SELFPAY | LOC: RCS 12:38 | PROVIDERS: ATTENDING PHYSICIAN Internal Medicine Interventional Cardiology; FAMILY PHYSICIAN Nurse Practitioner | DX: R06.09 Other forms of dyspnea (principal) | CPT/HCPCS: 93306 ==

== ENCOUNTER → 2024-10-02 08:28 | Outpatient (REF) | payer MEDICARE, OTHER, SELFPAY | LOC: HWRCS 08:28 | PROVIDERS: ATTENDING PHYSICIAN Internal Medicine Interventional Cardiology; FAMILY PHYSICIAN Nurse Practitioner | DX: R06.09 Other forms of dyspnea (principal); R06.02 Shortness of breath | CPT/HCPCS: 78452; 93017; A9500; J2785 ==

== ENCOUNTER → 2024-12-13 13:57 | Outpatient (REF) | payer MEDICARE, OTHER, SELFPAY | LOC: RAD 13:57 | PROVIDERS: ATTENDING PHYSICIAN Internal Medicine; FAMILY PHYSICIAN Nurse Practitioner | DX: R29.890 Loss of height (principal) | CPT/HCPCS: 72072 ==